=== PATIENT | female | born 1970 | race Caucasian/White ===

== ENCOUNTER 2023-08-20 13:39 | Outpatient (AMB) | payer MEDICAID, SELFPAY ==
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
[2023-08-20 13:46] VITALS: PULSE 61; O2SAT 95; BMI 27.2
== END 2023-08-20 14:47 | disposition home or self-care (01) ==
PROVIDERS: Visit Provider Nurse Practitioner Family
DX: R06.83 Snoring (principal); G47.19 Other hypersomnia; G47.9 Sleep disorder, unspecified; R47.1 Dysarthria and anarthria; G43.109 Migraine with aura, not intractable, without status migrainosus; R51.9 Headache, unspecified
CPT/HCPCS: 99204

== ENCOUNTER → 2023-08-20 13:39 | Outpatient (BNVA) | payer MEDICAID, SELFPAY | PROVIDERS: Visit Provider Nurse Practitioner Family | DX: G43.109 Migraine with aura, not intractable, without status migrainosus (principal); R47.1 Dysarthria and anarthria; R06.83 Snoring; G47.19 Other hypersomnia; G47.9 Sleep disorder, unspecified | CPT/HCPCS: 99212 ==

== ENCOUNTER 2023-12-10 14:34 | Outpatient (AMB) | payer MEDICAID, SELFPAY ==
--- NOTE | 2023-12-10 14:38 | MHC.OFFVIS ---
Intake Vital Signs 12/10/23 14:39 Height 4 ft 10 in Weight 132 lb BMI 27.6 BP 128/82 Blood Pressure Location Rt brachial Position Sitting Intake Visit Reasons: 3 mnts f/u appt for migraines-mail bx full Intake Note: Patient presents for 3 months follow up migraines. migraines are really bad Allergies clonazepam [From KLONOPIN] Allergy (Severe, Unverified 12/10/23 14:42) SWELLING shellfish derived [SHELLFISH DERIVED] Allergy (Severe, Unverified 12/10/23 14:42) SWELLING tramadol [TRAMADOL] Allergy (Intermediate, Unverified 12/10/23 14:42) SWELLING bee pollen [BEE STINGS] Allergy (Mild, Unverified 12/10/23 14:42) SWELLING IN THROAT honey Allergy (Unknown, Verified 12/10/23 14:42) Unknown Fish Flavor Allergy (Unknown, Uncoded 12/10/23 14:42) Unknown Medication List - Last Reconciled 12/10/23 by AIYANA Gonzalez acetaminophen 500 mg PO Q6H PRN atorvastatin 40 mg PO DAILY buspirone 10 mg PO BID cholecalciferol (vitamin D3) 50 mcg PO DAILY docusate sodium 100 mg PO DAILY duloxetine 60 mg PO DAILY gabapentin 800 mg PO BEDTIME galcanezumab-gnlm (Emgality Pen) 240 mg (2 mL) subcut ONCE 30 days magnesium oxide 400 mg PO BEDTIME 30 days meloxicam 15 mg PO DAILY naloxone 0.4 mg subcut Q2M PRN prazosin 2 mg PO BEDTIME riboflavin (vitamin B2) 400 mg PO DAILY 30 days rizatriptan 5 - 10 mg (0.5 - 1 x 10 mg) PO Q2H PRN 21 days trazodone 150 mg PO BEDTIME PRN umeclidinium-vilanterol 62.5-25 mcg/actuation (Anoro Ellipta) 1 inh inhalation DAILY HPI HPI Comments History of Present Illness Details 53-yr-old female presents for f/u visit. Pt reports she continues to have daily headaches and 3-4 more severe headache days per week. The top right frontal region is sore to the touch. Her baseline headache characteristics are: Location, quality, characteristics? 20/10 pain- frontal, bitemporal, throbbing and sharp pains a/w Blurry vision, seeing floaters during the headache, Photophobia, phonophobia, nausea, vomitting, dizziness, tiredness, brain fog, and right foot numbness/pins/needles sensation- after the headache She continues to have Fragmenetd sleep. Snoring, gasping. Excessive daytime sleepiness. Unfortunately she has not started any of the previous medications that were ordered, or the sleep study, or the brain MRI requested. Patient states she did not hear from anybody. She had moved shortly after her last visit here and possibly we did not have her correctable number either. [facility] Medical History (Updated 08/20/23 @ 18:15 by AIYANA Gonzalez) Anxiety and depression Chronic low back pain with right-sided sciatica Hx of diverticulitis of colon Osteoarthritis Moderate persistent asthma Renal mass Urinary retention QT prolongation PTSD (post-traumatic stress disorder) Polysubstance (excluding opioids) dependence HLD (hyperlipidemia) Hx of ischemic left MCA stroke Surgical History (Updated 08/20/23 @ 13:53 by ESTIVEN Fabian) H/O: hysterectomy H/O tubal ligation H/O knee surgery Social History Alcohol intake: current Patient Tobacco Use Status: Current everyday Tobacco user Review of Systems Const All systems reviewed & are unremarkable except as noted in HPI and below Physical Exam Vital Signs: Last Vital Signs BP 128/82 12/10/23 14:39 BMI result Body Mass Index 27.6 Const General: cooperative and no acute distress Orientation/consciousness: patient oriented x3 HEENT Head: Yes normocephalic Resp Effort & Inspection: normal respiratory effort and able to speak in complete sentences Neuro Other: Steady gait with walker Mild dysarthria, chronic General: patient oriented x3 Cognition (Neuro): normal cognition Motor exam (neuro): 5/5 motor strength present throughout Psych Mental Status: mental status grossly normal Affect: Labile affect present Attitude: cooperative Thought process: Normal thought process present Assessment & Plan Assessment & Plan (1) Migraine with aura: Code(s): G43.109 - Migraine with aura, not intractable, without status migrainosus (2) Headache: Code(s): R51.9 - Headache, unspecified (3) Dysarthria: Code(s): R47.1 - Dysarthria and anarthria (4) Sleep difficulties: Code(s): G47.9 - Sleep disorder, unspecified (5) Excessive daytime sleepiness: Code(s): G47.19 - Other hypersomnia (6) Snoring: Code(s): R06.83 - Snoring Plan Pt again advised to undergo brain MRI w/o - to obtain new baseline as pt has daily headcahe w/ headcahes c/w migraine w/ ? sensory aura of right foot paresthesias Pt again advised to undergo in-lab PSG, to assess for sleep apnea in pt w/ h/o Left MCA stroke, dysarthria, dysphagia. Will follow-up on these orders. No patient is scheduled for total hip replacement later this month. For overall headache management: Discussed importance of good self-care, including but not limited to maintaining a healthy diet, adequate fluid intake, adequate sleep, and engaging in regular physical activity. For headache triggers: Track headaches. For acute headache treatment: Discussed importance of taking acute medications at the first sign of headache, however stressed importance of avoiding acute medication overuse (especially with combined headache medications). Trial Rizatriptan 10mg tab, 1/2 - 1 tab (5-10mg) at onset of headache, may repeat in 2 hours. Max of 2 tabs (200mg) per 24 hours. May adjunct with OTC Tylenol 650mg q 4 hours, Ibuprofen (liquigel) 600mg q 6 hours, or Naproxen (liquigel) 440mg q 12 hrs prn. Previous acute migraine medication trials: Sumatriptan- ineffective Acute migraine medication contraindications: None at this time For headache prevention medication: Discussed that preventative medications should be taken routinely as prescribed for best effect, it may take several weeks for full effect to take effect. Start Riboflavin 400mg qam Start Magnesium 400mg qhs Start Emgality 240mg sc x's 1 then 120mg sc q month. Previous migraine prevention medication trials: Amitriptyline and Topiramate- ineffective. Migraine prevention medication contraindications: BBs d/t asthma dx. Future considerations- After PSG, reducing Trazodone as this may exacerbate headache. Pt to follow-up in 3 months or sooner prn. Medications: Changed From galcanezumab-gnlm (Emgality Pen) 120 mg subcut ONCE 30 days 1 mL 6RF To galcanezumab-gnlm (Emgality Pen) 240 mg (2 mL) subcut ONCE 30 days 2 mL 0RF Refilled magnesium oxide may hold for loose stools 400 mg PO BEDTIME 30 days 30 tabs 6RF rizatriptan max 2 tabs per day or 4 tabs per week 5 - 10 mg (0.5 - 1 x 10 mg) PO Q2H 21 days PRN 12 tabs 3RF migraine headache riboflavin (vitamin B2) 400 mg PO DAILY 30 days 30 tabs 6RF Coding Level of Care Code Est Pt Level 4 (94427) Diagnoses Migraine with aura G43.109 Headache R51.9 Dysarthria R47.1 Sleep difficulties G47.9 Excessive daytime sleepiness G47.19 Snoring R06.83
[2023-12-10 14:39] VITALS: BP 128/82; BMI 27.6
== END 2023-12-10 15:22 | disposition home or self-care (01) ==
PROVIDERS: PCP Physician Assistant; Visit Provider Nurse Practitioner Family
DX: G43.109 Migraine with aura, not intractable, without status migrainosus (principal); R51.9 Headache, unspecified; R47.1 Dysarthria and anarthria; G47.9 Sleep disorder, unspecified; G47.19 Other hypersomnia; R06.83 Snoring
CPT/HCPCS: 99214

== ENCOUNTER → 2023-12-10 14:34 | Outpatient (BNVA) | payer MEDICAID, SELFPAY | PROVIDERS: PCP Physician Assistant; Visit Provider Nurse Practitioner Family | DX: G43.109 Migraine with aura, not intractable, without status migrainosus (principal); G47.9 Sleep disorder, unspecified; G47.19 Other hypersomnia; R51.9 Headache, unspecified; R47.1 Dysarthria and anarthria; R06.83 Snoring | CPT/HCPCS: 99212 ==

== ENCOUNTER 2024-04-06 14:28 | Outpatient (AMB) | payer MEDICAID, SELFPAY ==
--- NOTE | 2024-04-06 14:39 | A.OFFVIS_ITS ---
Vital Signs 04/06/24 14:51 Height 4 ft 10 in Weight 128 lb 6 oz BMI 26.8 BP 122/70 Blood Pressure Location Lt brachial Position Sitting Pulse 82 Pulse Source Pulse Oximeter Pulse Oximetry (%) 97 Oxygen Delivery Method Room Air Intake Visit Reasons: 4 mo f/u/ LM w/Address Intake Note: Patient presents for 4 months f/u. Getting migraines 2-3 a week. Ears are very sensitive to touch and noise. Allergies shellfish derived [SHELLFISH DERIVED] Allergy (Severe, Verified 04/06/24 14:48) SWELLING bee pollen [BEE STINGS] Allergy (Mild, Verified 04/06/24 14:48) SWELLING IN THROAT Fish Flavor Allergy (Unknown, Uncoded 12/10/23 14:42) Unknown Medication List - Last Reconciled 04/06/24 by AIYANA Gonzalez acetaminophen 500 mg PO Q6H PRN atorvastatin 40 mg PO DAILY buspirone 10 mg PO BID cholecalciferol (vitamin D3) 50 mcg PO DAILY docusate sodium 100 mg PO DAILY duloxetine 60 mg PO DAILY gabapentin 800 mg PO BEDTIME galcanezumab-gnlm (Emgality Pen) 240 mg (2 mL) subcut ONCE 30 days magnesium oxide 400 mg PO BEDTIME 30 days meloxicam 15 mg PO DAILY naloxone 0.4 mg subcut Q2M PRN prazosin 2 mg PO BEDTIME riboflavin (vitamin B2) 400 mg PO DAILY 30 days rizatriptan 5 - 10 mg (0.5 - 1 x 10 mg) PO Q2H PRN 21 days trazodone 150 mg PO BEDTIME PRN umeclidinium-vilanterol 62.5-25 mcg/actuation (Anoro Ellipta) 1 inh inhalation DAILY HPI Comments Details: 53-yr-old female presents for f/u visit. Accompanied by her friend. Pt had an interval THR surgery. 02/01/24, Brain MRI w/o, No acute findings, Chronic left MCA infarct w/ hemosidirn staining and volume loss. Pt reports she is having 3 severe migraine days per week. She took Emgality 120mg sc x's 1, approx 3 months ago. Not sure if it helped. She forgot to reorder it. She endorses snoring, daytime sleepiness- dozes off when inactive and may be prone to spill a drink in her hands, sleep difficulties. She states her sleeping medicatiosn are not helping- states she is on Trazodone 300mg qhs and prazosin. She would like to stop Trazodone. She never did the sleep study. Baseline headache characteristics: Aura: Sees floaters during the headache Headache: Severe, Blurry vision, frontal, bitemporal, throbbing and sharp pains. A/w photophobia, phonophobia, nausea, vomiting, dizziness, tiredness, brain fog Focal weakness, Parethesias, Autonomic s/s? right foot numbness/pins/needles sensation- after the headache. Postdrome: Has a residual gross taste PFSH Medical History (Updated 04/06/24 @ 15:26 by AIYANA Gonzalez) Anxiety and depression Chronic low back pain with right-sided sciatica Hx of diverticulitis of colon Osteoarthritis Moderate persistent asthma Renal mass Urinary retention QT prolongation PTSD (post-traumatic stress disorder) Polysubstance (excluding opioids) dependence HLD (hyperlipidemia) Hx of ischemic left MCA stroke Surgical History History of hip replacement H/O: hysterectomy H/O tubal ligation H/O knee surgery Family History (Updated 04/06/24 @ 14:50 by Letty Romo CMA) Father Cancer Mother Heart failure Social History (Updated 04/06/24 @ 14:51 by Letty Romo CMA) Household Members: Spouse Housing: House Alcohol intake: current Patient Tobacco Use Status: Current everyday Tobacco user Physical Exam Vital Signs: Last Vital Signs Pulse 82 04/06/24 14:51 BP 122/70 04/06/24 14:51 Pulse Ox 97 04/06/24 14:51 Oxygen Delivery Method Room Air 04/06/24 14:51 BMI result Body Mass Index 26.8 Const General: cooperative and no acute distress Orientation/consciousness: patient oriented x3 Resp Effort & Inspection: normal respiratory effort and able to speak in complete sentences Neuro Other: A&O x's 3, w/ STM lapses. Dysarthria, some word finding difficulties. Antalgic gait. General: patient oriented x3 Psych Appearance: grossly normal Mental Status: mental status grossly normal Attitude: cooperative Assessment & Plan Assessment & Plan (1) Migraine with aura: Code(s): G43.109 - Migraine with aura, not intractable, without status migrainosus Category: Medical (2) Anxiety and depression: Code(s): F41.9 - Anxiety disorder, unspecified; F32.A - Depression, unspecified Category: Medical (3) Sleep difficulties: Code(s): G47.9 - Sleep disorder, unspecified Category: Medical (4) Excessive daytime sleepiness: Code(s): G47.19 - Other hypersomnia Category: Medical (5) Snoring: Code(s): R06.83 - Snoring Category: Medical (6) Insomnia: Code(s): G47.00 - Insomnia, unspecified Category: Medical Plan Reviewed brain MRI w/o- no acute findings. Chronic left MCA infarct. Pt again advised to undergo in-lab PSG, to assess for sleep apnea in pt w/ h/o Left MCA stroke, dysarthria, dysphagia. Trial Mirtazapine 7.5mg qhs for sleep. Will reach out to pt's pharmacy to confirm Trazodone dose- as pt asking for refill but to be weaned off Trazodone. Will refer pt to [facility] psychiatry, her methadone is already managed by [facility] addiction medicine clinic. For overall headache management: Discussed importance of good self-care, including but not limited to maintaining a healthy diet, adequate fluid intake, adequate sleep, and engaging in regular physical activity. Track headaches. For acute headache treatment: Rizatriptan 10mg tab, 1/2 - 1 tab (5-10mg) at onset of headache, may repeat in 2 hours. Max of 2 tabs (200mg) per 24 hours. May adjunct with OTC Tylenol 650mg q 4 hours, Ibuprofen (liquigel) 600mg q 6 hours, or Naproxen (liquigel) 440mg q 12 hrs prn. Previous acute migraine medication trials: Sumatriptan- ineffective Acute migraine medication contraindications: None at this time For headache prevention medication: Riboflavin 400mg qam Magnesium 400mg qhs Stop Emgality- as pt has been unable to manage the multiple steps involved in obtaining, stroing, and administering a monthly injectable tx. Thus, pt advsied to start Vyepti 100mg IV q 3 months- as pt has been able to consistently keep her clinic visit appointments. Previous migraine prevention medication trials: Amitriptyline and Topiramate- ineffective. Migraine prevention medication contraindications: BBs d/t asthma dx. Aimovig or Qulipta d/t constipation. Pt to follow-up in 3 months or sooner prn. Orders: Referrals Psychiatry Referral F19.20 - Other psychoactive substance dependence, uncomplicated, F32.A - Depression, unspecified, F41.9 - Anxiety disorder, unspecified, G47.00 - Insomnia, unspecified, Z86.73 - Personal history of transient ischemic attack (TIA), and cerebral infarction without residual deficits Medications: New mirtazapine 7.5 mg PO BEDTIME 30 tabs 3RF 30 days eptinezumab-jjmr (Vyepti) administer over 30 mins 100 mg IV [id number] 90 days G43.109 - Migraine with aura, not intractable, without status migrainosus methadone [facility] on [place], [place] 150 mg PO DAILY Discontinued galcanezumab-gnlm (Emgality Pen) Discontinued Reason: Doctor's Order 240 mg (2 mL) subcut ONCE 30 days 2 mL 0RF Coding Level of Care Code Est Pt Level 4 (52638) Diagnoses Migraine with aura G43.109 Anxiety and depression F41.9; F32.A Sleep difficulties G47.9 Excessive daytime sleepiness G47.19 Snoring R06.83 Insomnia G47.00
[2024-04-06 14:51] VITALS: BP 122/70; PULSE 82; O2SAT 97; BMI 26.8
== END 2024-04-06 15:40 | disposition home or self-care (01) ==
PROVIDERS: PCP Physician Assistant; Visit Provider Nurse Practitioner Family
DX: G43.109 Migraine with aura, not intractable, without status migrainosus (principal); F41.9 Anxiety disorder, unspecified; F32.A Depression, unspecified; G47.9 Sleep disorder, unspecified; G47.19 Other hypersomnia; R06.83 Snoring; G47.00 Insomnia, unspecified
CPT/HCPCS: 99214

== ENCOUNTER → 2024-04-06 14:28 | Outpatient (BNVA) | payer MEDICAID, SELFPAY | PROVIDERS: PCP Physician Assistant; Visit Provider Nurse Practitioner Family | DX: G43.109 Migraine with aura, not intractable, without status migrainosus (principal); G47.19 Other hypersomnia; R06.83 Snoring; G47.00 Insomnia, unspecified; F41.9 Anxiety disorder, unspecified; F32.A Depression, unspecified | CPT/HCPCS: 99212 ==

== ENCOUNTER 2024-10-21 14:17 | Outpatient (AMB) | payer MEDICAID, SELFPAY ==
[2024-10-21 14:21] VITALS: BP 110/70; PULSE 84; O2SAT 92; BMI 29.7
--- NOTE | 2024-10-21 14:21 | A.OFFVIS_ITS ---
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 Required: No Accompanied by: Spouse Allergies shellfish derived [SHELLFISH DERIVED] Allergy (Severe, Verified 10/21/24 14:23) SWELLING bee pollen [BEE STINGS] Allergy (Mild, Verified 10/21/24 14:23) SWELLING IN THROAT Fish Flavor Allergy (Unknown, Uncoded 12/10/23 14:42) Unknown Medication List - Last Reconciled 10/21/24 by AIYANA Gonzalez acetaminophen 500 mg PO Q6H PRN atorvastatin 40 mg PO DAILY buspirone 10 mg PO BID cholecalciferol (vitamin D3) 50 mcg PO DAILY docusate sodium 100 mg PO DAILY duloxetine 60 mg PO DAILY eptinezumab-jjmr (Vyepti) 100 mg IV [id number] 90 days gabapentin 800 mg PO BEDTIME magnesium oxide 400 mg PO BEDTIME 30 days meloxicam 15 mg PO DAILY methadone 150 mg PO DAILY mirtazapine 7.5 mg PO BEDTIME 30 days naloxone 0.4 mg subcut Q2M PRN prazosin 2 mg PO BEDTIME riboflavin (vitamin B2) 400 mg PO DAILY 30 days rizatriptan 5 - 10 mg (0.5 - 1 x 10 mg) PO Q2H PRN 21 days trazodone 150 mg PO BEDTIME PRN trazodone 200 mg PO BEDTIME PRN umeclidinium-vilanterol 62.5-25 mcg/actuation (Anoro Ellipta) 1 inh inhalation DAILY HPI Comments Details: 54-yr-old female presents for f/u visit. Accompanied by her friend. Pt denies any significant interval medical history chnages. Pt reports she is having 3 severe migraine days per week, and a daily more moderate headache. She is having frequent holocranial allodynia- it hurts to touch her whole head, cannot brush her hair. She states her triptan helps, but she has a lot of migraine attacks. She has not started Vtepti yet. She endorses snoring, daytime sleepiness- dozes off when inactive and may be prone to spill a drink in her hands, sleep difficulties. She states she did not stop her trazodone- now states she cannot sleep without it. She started Mirtazapine, but sttaes it sucks . She continues to take Trazodone 300mg qhs and prazosin. She never had the sleep study. Baseline headache characteristics: Aura: Sees floaters during the headache Headache: Severe, Blurry vision, frontal, bitemporal, throbbing and sharp pains. A/w photophobia, phonophobia, nausea, vomiting, dizziness, tiredness, brain fog Focal weakness, Parethesias, Autonomic s/s? right foot numbness/pins/needles sensation- after the headache. Postdrome: Has a residual gross taste [facility] Medical History (Updated 04/06/24 @ 15:26 by AIYANA Gonzalez) Anxiety and depression Chronic low back pain with right-sided sciatica Hx of diverticulitis of colon Osteoarthritis Moderate persistent asthma Renal mass Urinary retention QT prolongation PTSD (post-traumatic stress disorder) Polysubstance (excluding opioids) dependence HLD (hyperlipidemia) Hx of ischemic left MCA stroke Surgical History History of hip replacement H/O: hysterectomy H/O tubal ligation H/O knee surgery Family History Father Cancer Mother Heart failure Social History Household Members: Spouse Housing: House Alcohol intake: current Patient Tobacco Use Status: Current everyday Tobacco user Physical Exam Vital Signs: Last Vital Signs Pulse 84 10/21/24 14:21 BP 110/70 10/21/24 14:21 Pulse Ox 92 10/21/24 14:21 Oxygen Delivery Method Room Air 10/21/24 14:21 BMI result Body Mass Index 29.7 Const General: cooperative and no acute distress Resp Effort & Inspection: normal respiratory effort and able to speak in complete sentences Neuro Other: A&O x's 3, w/ STM lapses. Diffuse scalp tenderness w/ lesions, erythema, warmth. Dysarthria, some word finding difficulties. Antalgic gait. Psych Appearance: grossly normal Mental Status: mental status grossly normal Attitude: cooperative Assessment & Plan Assessment & Plan (1) Migraine with aura: Code(s): G43.109 - Migraine with aura, not intractable, without status migrainosus Category: Medical (2) Anxiety and depression: Code(s): F41.9 - Anxiety disorder, unspecified; F32.A - Depression, unspecified Category: Medical (3) Sleep difficulties: Code(s): G47.9 - Sleep disorder, unspecified Category: Medical (4) Excessive daytime sleepiness: Code(s): G47.19 - Other hypersomnia Category: Medical (5) Snoring: Code(s): R06.83 - Snoring Category: Medical (6) Insomnia: Code(s): G47.00 - Insomnia, unspecified Category: Medical Plan For h/o chronic left MCA infarct: Contyinue to optimize CV risk factors. BP normotensive. ASA 81mg qhs. Continue statin. Pt again advised to undergo in-lab PSG, to assess for sleep apnea in pt w/ h/o Left MCA stroke, dysarthria, dysphagia. Continue Mirtazapine 7.5mg qhs for sleep. For overall headache management: Discussed importance of good self-care, including but not limited to maintaining a healthy diet, adequate fluid intake, adequate sleep, and engaging in regular physical activity. Track headaches. For acute headache treatment: Rizatriptan 10mg tab, 1/2 - 1 tab (5-10mg) at onset of headache, may repeat in 2 hours. Max of 2 tabs (200mg) per 24 hours. May adjunct with OTC Tylenol 650mg q 4 hours, Ibuprofen (liquigel) 600mg q 6 hours, or Naproxen (liquigel) 440mg q 12 hrs prn. Previous acute migraine medication trials: Sumatriptan- ineffective Acute migraine medication contraindications: None at this time For headache prevention medication: Riboflavin 400mg qam Magnesium 400mg qhs Stopped Emgality- as pt has been unable to manage the multiple steps involved in obtaining, storing, and administering a monthly injectable tx. Thus, pt advised is again advised to start Vyepti 100mg IV q 3 months- as pt has been able to consistently keep her clinic visit appointments. Previous migraine prevention medication trials: Amitriptyline and Topiramate- ineffective. Migraine prevention medication contraindications: BBs d/t asthma dx. Aimovig or Qulipta d/t constipation. Pt to follow-up in 3 months or sooner prn. Medications: New aspirin at bedtime 81 mg PO DAILY 30 days 30 tabs 6RF for secondary stroke prevention Refilled eptinezumab-jjmr (Vyepti) administer over 30 mins 100 mg IV [id number] 90 days 0RF G43.109 - Migraine with aura, not intractable, without status migrainosus Coding Level of Care Code Est Pt Level 4 (02830) Diagnoses Migraine with aura G43.109 Anxiety and depression F41.9; F32.A Sleep difficulties G47.9 Excessive daytime sleepiness G47.19 Snoring R06.83 Insomnia G47.00
== END 2024-10-21 15:20 | disposition home or self-care (01) ==
PROVIDERS: PCP Physician Assistant; Visit Provider Nurse Practitioner Family
DX: G43.109 Migraine with aura, not intractable, without status migrainosus (principal); F41.9 Anxiety disorder, unspecified; F32.A Depression, unspecified; G47.9 Sleep disorder, unspecified; G47.19 Other hypersomnia; R06.83 Snoring; G47.00 Insomnia, unspecified
CPT/HCPCS: 99214

== ENCOUNTER → 2024-10-21 14:17 | Outpatient (BNVA) | payer MEDICAID, SELFPAY | PROVIDERS: PCP Physician Assistant; Visit Provider Nurse Practitioner Family | DX: G43.109 Migraine with aura, not intractable, without status migrainosus (principal); G47.9 Sleep disorder, unspecified; G47.19 Other hypersomnia; G47.00 Insomnia, unspecified; R06.83 Snoring; F41.9 Anxiety disorder, unspecified; F32.A Depression, unspecified | CPT/HCPCS: 99212 ==

== ENCOUNTER 2025-04-27 13:57 | Outpatient (AMB) | payer MEDICAID, SELFPAY ==
--- NOTE | 2025-04-27 14:03 | MHC.OFFVIS ---
Vital Signs 04/27/25 14:04 Height 4 ft 10 in Weight 133 lb BMI 27.8 Intake Visit Reasons: Follow Up 6mo Intake Note: Patient presents 6 month follow up for migraines. Allergies shellfish derived [SHELLFISH DERIVED] Allergy (Severe, Verified 04/27/25 14:05) SWELLING bee pollen [BEE STINGS] Allergy (Mild, Verified 04/27/25 14:05) SWELLING IN THROAT Fish Flavor Allergy (Unknown, Uncoded 04/27/25 14:05) Unknown Medication List - Last Reconciled 04/27/25 by AIYANA Gonzalez acetaminophen 500 mg PO Q6H PRN aspirin 81 mg PO DAILY 30 days atorvastatin 40 mg PO DAILY buspirone 10 mg PO BID cholecalciferol (vitamin D3) 50 mcg PO DAILY docusate sodium 100 mg PO DAILY duloxetine 60 mg PO DAILY eptinezumab-jjmr (Vyepti) 100 mg IV [id number] 90 days gabapentin 800 mg PO BEDTIME magnesium oxide 400 mg PO BEDTIME 30 days meloxicam 15 mg PO DAILY methadone 150 mg PO DAILY mirtazapine 7.5 mg PO BEDTIME 30 days naloxone 0.4 mg subcut Q2M PRN prazosin 2 mg PO BEDTIME riboflavin (vitamin B2) 400 mg PO DAILY 30 days rizatriptan 5 - 10 mg (0.5 - 1 x 10 mg) PO Q2H PRN 21 days trazodone 150 mg PO BEDTIME PRN trazodone 200 mg PO BEDTIME PRN umeclidinium-vilanterol 62.5-25 mcg/actuation (Anoro Ellipta) 1 inh inhalation DAILY HPI Comments Details: 54-yr-old female presents for f/u visit of migraine. Accompanied by her friend. Pt denies any significant interval medical history changes. Since last visit, patient started Vyepti 100 mg infusion. So far, she has had 1 infusion, which he feels has been overall helpful. Pt reports she is having less headaches and migraine days, now 3 headache/migraine days per week. However, she does continue to have bothersome phonophobia. She states her triptan is effective. Note, on review of patient's chart, it does look like she recently saw [facility] on 03/16/2025 and underwent a right-sided occipital nerve block. She endorses sleep difficulties, snoring, daytime sleepiness- dozes off when inactive and may be prone to spill a drink in her hands. She continues to use Trazodone 300mg qhs and prazosin for sleep. She thought she had had the in-lab sleep study, however I do not see any evidence that she has had the previously ordered in-lab sleep study, though possibly was referred for a sleep study through [facility] neurology. Baseline headache characteristics: Aura: Sees floaters during the headache Headache: Severe, Blurry vision, frontal, bitemporal, throbbing and sharp pains. A/w photophobia, phonophobia, nausea, vomiting, dizziness, tiredness, brain fog Focal weakness, Parethesias, Autonomic s/s? right foot numbness/pins/needles sensation- after the headache. Postdrome: Has a residual gross taste PFSH Medical History Anxiety and depression Chronic low back pain with right-sided sciatica Hx of diverticulitis of colon Osteoarthritis Moderate persistent asthma Renal mass Urinary retention QT prolongation PTSD (post-traumatic stress disorder) Polysubstance (excluding opioids) dependence HLD (hyperlipidemia) Hx of ischemic left MCA stroke Surgical History History of hip replacement H/O: hysterectomy H/O tubal ligation H/O knee surgery Family History Father Cancer Mother Heart failure Social History Household Members: Spouse Housing: House Alcohol intake: current Patient Tobacco Use Status: Current everyday Tobacco user Physical Exam Vital Signs: BMI result Body Mass Index 27.8 Const General: cooperative and no acute distress Resp Effort & Inspection: normal respiratory effort and able to speak in complete sentences Neuro Other: A&O x's 3, w/ STM lapses, though overall clearer today. Dysarthria, some word finding difficulties. Antalgic gait. Psych Appearance: grossly normal Mental Status: mental status grossly normal Attitude: cooperative Assessment & Plan Assessment & Plan (1) Methadone maintenance therapy patient: Code(s): F11.20 - Opioid dependence, uncomplicated Category: Medical (2) Migraine with aura: Code(s): G43.109 - Migraine with aura, not intractable, without status migrainosus Category: Medical Qualifiers: Status migrainosus presence: without status migrainosus Intractability: not intractable Qualified Code(s): G43.109 - Migraine with aura, not intractable, without status migrainosus (3) Anxiety and depression: Code(s): F41.9 - Anxiety disorder, unspecified; F32.A - Depression, unspecified Category: Medical (4) Sleep difficulties: Code(s): G47.9 - Sleep disorder, unspecified Category: Medical (5) Excessive daytime sleepiness: Code(s): G47.19 - Other hypersomnia Category: Medical (6) Snoring: Code(s): R06.83 - Snoring Category: Medical (7) Insomnia: Code(s): G47.00 - Insomnia, unspecified Category: Medical Plan For h/o chronic left MCA infarct: Continue to optimize CV risk factors. BP has been running normotensive. Continue ASA 81mg qhs. Continue statin. For sleep difficulties: If not yet completed, patient is again advised to undergo in-lab PSG, to assess for sleep apnea in pt w/ h/o Left MCA stroke, dysarthria, dysphagia. For overall headache management: Discussed importance of good self-care, including but not limited to maintaining a healthy diet, adequate fluid intake, adequate sleep, and engaging in regular physical activity. Track headaches. For acute headache treatment: Rizatriptan 10mg tab, 1/2 - 1 tab (5-10mg) at onset of headache, may repeat in 2 hours. Max of 2 tabs (200mg) per 24 hours. May take with OTC Tylenol 650mg every 4 hours, Ibuprofen (liquigel) 600mg every 6 hours, or Naproxen (liquigel) 440mg every 12 hours as needed. Previous acute migraine medication trials: Sumatriptan- ineffective Acute migraine medication contraindications: None at this time For headache prevention medication: Riboflavin 400mg daily in the morning Magnesium 400mg daily at bedtime Increase Vyepti from 100mg IV q 3 months to 300 mg IV Q 3 months- as patient has had good reduction in monthly migraine days of greater than 50% reduction, however does continue to have 3 migraine days per week and significant phonophobia. Patient has demonstrated ability to be compliant with Vyepti therapy, where as she was unable to manage home Emgality therapy. Previous migraine prevention medication trials: Amitriptyline and Topiramate- ineffective. Emgality-pt was unable to manage the multiple steps involved in obtaining, storing, and administering a monthly injectable tx. Migraine prevention medication contraindications: BBs d/t asthma dx. Aimovig or Qulipta d/t constipation. Will follow-up upon review of above and patient to follow-up in clinic in 3-4 months or sooner prn. Orders: Orders RT PSG in-lab sleep study Today F11.20 - Opioid dependence, uncomplicated, G47.19 - Other hypersomnia, G47.9 - Sleep disorder, unspecified, R06.83 - Snoring, R47.1 - Dysarthria and anarthria Medications: Changed From riboflavin (vitamin B2) 400 mg PO DAILY 30 days 30 tabs 6RF To riboflavin (vitamin B2) 400 mg PO DAILY 90 days 90 tabs 3RF From magnesium oxide may hold for loose stools 400 mg PO BEDTIME 30 days 30 tabs 6RF To magnesium oxide may hold for loose stools 400 mg PO BEDTIME 90 days 90 tabs 3RF From eptinezumab-jjmr (Vyepti) administer over 30 mins 100 mg IV [id number] 90 days 0RF G43.109 - Migraine with aura, not intractable, without status migrainosus To eptinezumab-jjmr (Vyepti) administer over 30 mins 300 mg (3 mL) IV [id number] 90 days 0RF G43.109 - Migraine with aura, not intractable, without status migrainosus Refilled rizatriptan max 2 tabs per day or 4 tabs per week 5 - 10 mg (0.5 - 1 x 10 mg) PO Q2H 21 days PRN 12 tabs 6RF migraine headache Discontinued mirtazapine Discontinued Reason: Patient no longer taking 7.5 mg PO BEDTIME 30 days 30 tabs 3RF Coding Level of Care Code Est Pt Level 4 (94042) Diagnoses Methadone maintenance therapy patient F11.20 Migraine with aura and without status migrainosus, not intractable G43.109 Status migrainosus presence: without status migrainosus Intractability: not intractable Anxiety and depression F41.9; F32.A Sleep difficulties G47.9 Excessive daytime sleepiness G47.19 Snoring R06.83 Insomnia G47.00 [place] Sleepiness Scale Questions Sitting and reading: high chance of dozing Watching TV: high chance of dozing Sitting inactive in a theater, movie etc.: high chance of dozing As a passenger in a car for an hour without break: would never doze Lying down in the afternoon when circumstances permit: high chance of dozing Sitting and talking to someone: would never doze Sitting quietly after lunch without alcohol: high chance of dozing In a car, while stopped for a few minutes in the traffic: would never doze ESS < 10: normal, ESS > 12: pathologic: 15
[2025-04-27 14:04] VITALS: BMI 27.8
== END 2025-04-27 14:37 | disposition home or self-care (01) ==
LOC: HO.HSMS 13:58
PROVIDERS: PCP Physician Assistant; Visit Provider Nurse Practitioner Family
DX: F11.20 Opioid dependence, uncomplicated (principal); G43.109 Migraine with aura, not intractable, without status migrainosus; F41.9 Anxiety disorder, unspecified; F32.A Depression, unspecified; G47.9 Sleep disorder, unspecified; G47.19 Other hypersomnia; R06.83 Snoring; G47.00 Insomnia, unspecified
CPT/HCPCS: 99214

== ENCOUNTER → 2025-04-27 13:57 | Outpatient (BNVA) | payer MEDICAID, SELFPAY | PROVIDERS: PCP Physician Assistant; Visit Provider Nurse Practitioner Family | DX: G43.109 Migraine with aura, not intractable, without status migrainosus (principal); G47.9 Sleep disorder, unspecified; G47.19 Other hypersomnia; G47.00 Insomnia, unspecified; R06.83 Snoring; F41.9 Anxiety disorder, unspecified; F32.A Depression, unspecified; F11.20 Opioid dependence, uncomplicated | CPT/HCPCS: 99212 ==

== ENCOUNTER → 2025-06-12 19:30 | Outpatient (REF) | payer MEDICAID, SELFPAY | LOC: HO.SL 19:30 | PROVIDERS: PCP Physician Assistant; Visit Provider Nurse Practitioner Family | DX: G47.9 Sleep disorder, unspecified (principal); R47.1 Dysarthria and anarthria; G47.19 Other hypersomnia; R06.83 Snoring; F11.20 Opioid dependence, uncomplicated | CPT/HCPCS: 95810 ==

== ENCOUNTER → 2025-06-12 21:56 | Outpatient (BNV) | payer MEDICAID, SELFPAY | PROVIDERS: PCP Physician Assistant; Visit Provider Psychiatry & Neurology Neurology | DX: G47.00 Insomnia, unspecified (principal) | CPT/HCPCS: 95810 ==

== ENCOUNTER 2025-10-10 11:21 | Outpatient (REF) | payer MEDICAID, SELFPAY ==
--- NOTE | ~2025-10-10 | XR_ITS ---
EXAMINATION: XR CHEST CLINICAL INFORMATION: R05.9 - Cough, unspecified COMPARISON: None available. TECHNIQUE: 2 views of the chest were obtained. FINDINGS: Heart and mediastinal contours are within normal limits. There are mildly coarse lung markings. 5 mm nodular density right mid third lung zone probably represents calcified granuloma. There is no pleural effusion. XR/XR chest 2V IMPRESSION: No acute disease Electronically signed by: Julio Pierce MD 10/10/2025 12:39 PM ILIANA
--- OUTSIDE RECORDS SUMMARY | 2025-10-10 14:28 | XMS_ITS | Encounter Summary ---
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 Facing Cutting Machine Operator Name Role Phone Lokesh Dahl MD Primary Care Provider + [phone] Encounter Details Date Type Department Care Team (Late st Contact Info) Description 11/04/2017 Interim Notes [facility] [address] [place] [phone] Jose Overton [phone] [place] [id number] Social History Tobacco Use Types Packs/Day Years Used Date Smoking Tobacco: Every Day Alcohol Use Standard Drinks/Week Comments No 0 (1 standard drink = 0.6 oz pur e alcohol) Comments No Sex and Gender Information Value Date Recorded Sex Assigned at Female 09/12/2017 10:53 AM PDT Legal Sex Female 8:52 AM PST Gender Identity Female 09/12/2017 10:53 AM PDT Sexual Orientation Straight 09/12/2017 10 :53 AM PDT documented as of this encounter Plan of Treatment Not on file documented as of this encounter Visit Diagnoses Not on filedocumented in this encounter Additional Health Concerns Assessment Noted Time PHQ-2 Depression Total Score: 6 06/05/20 16 2:00 PM PDT documented as of this encounter Care Teams Facing Cutting Machine Operator Relationship Specialty Start Date End Date Lokesh Dahl MD [address] [place] [id number] PCP - General Internal Medicine 09/10/24 documented as of this encounter
--- OUTSIDE RECORDS SUMMARY | 2025-10-10 14:28 | XMS_ITS | Clinical Summary ---
Author Organization [facility] Address [address] [place] [address] Care Team Providers Care Security Engineer Name Role Phone Lokesh Dahl MD Primary Care Provider + [phone] Source Comments PLEASE NOTE, if this patient is a minor, it may be UNLAWFUL to discuss sensitive information that is contained in these records (such as FAMILY PLANNING, MENTAL HEALTH or SUBSTANCE ABUSE) with the minor patient's parent or other person without the patient's specific authorization.[facility] Allergies Active Allergy Reactions Criticality Noted Date Comments Bee Pollen 07/26/2019 Bee Sting SOB,Swelling 06/05/2016 Fish Derived 07/26/2019 Shellfish Containing Products SOB,Swelling 06/05/2016 Other Reaction(s): rash, swelling Shrimp SOB,Swelling 06/05/2016 Allergic to shellfish Tramadol Hcl 10/07/2012 Other Reaction(s): Not available Medications busPIRone (BUSPAR) 10 mg tablet MÓNICA DOMINIQUE 020 Active DULoxetine (CYMBALTA) [address] capsuleIndication s:Primary osteoarthritis of right hip MÓNICA DOMINIQUE- PYSCH 020 Active docusate sodium (COLACE) 100 mg capsuleIndication s:Slow transit constipation TAKE 1 CAPSULE BY MOUTH 2 (TWO) TIMES DAILY 90 Capsule 023 Active MISCELLANEOUS MEDICAL SUPPLY MISCIndications:P rimary osteoarthritis of right knee,Primary osteoarthritis of right hip,Chronic midline low back pain with right-sided sciatica,Hx of ischemic left MCA stroke,DDD (degenerative disc disease), lumbosacral by miscellaneous route once daily by miscellaneous route once daily. Dispense 1 Rolator walker w/ wheels, brake, and bench. Lifetime use . DDD (degenerative disc disease), lumbosacral [M51.37], Hx of ischemic left MCA stroke [Z86.73] 1 Each 023 Active methadone HCl (METHADONE ORAL) Take 115 mg by mouth 022 Active meloxicam (MOBIC) 15 mg tabletIndications :Primary osteoarthritis of right hip,DDD (degenerative disc disease), lumbosacral Take 1 Tablet by mouth once daily 90 Tablet 1 024 Active prazosin (MINIPRESS) 2 mg capsule TAKE 1 CAPSULE BY MOUTH TWICE A DAY HOLD FOR DIZZINESS OR SEDATION 024 Active aspirin [address] 81 mg into mouth, chew and swallow once daily Active traZODone (DESYREL) 150 mg tablet Take 150 mg by mouth nightly at bedtime 025 Active hydrOXYzine pamoate (VISTARIL) 25 mg capsule Take 25 mg by mouth 2 (two) times daily as needed 025 Active VENTOLIN HFA 90 mcg/actuation inhalerIndication s:Chronic obstructive pulmonary disease, unspecified COPD type INHALE 2 PUFFS INTO THE LUNGS EVERY 4 (FOUR) HOURS NEEDED FOR SHORTNESS OF BREATH OR WHEEZING 18 Each 5 025 Active lactulose (CHRONULAC) 10 gram/15 mL solutionIndicatio ns:Drug-induced constipation TAKE 15 ML BY MOUTH ONCE DAILY 237 mL 1 025 Active nicotine (NICODERM, STEP 1) 21 mg/[address] 1 Patch onto the skin once daily (every 24 hours). 60 Patch 1 025 Active nicotine, polacrilex, (NICORETTE) 4 mg gum Take 1 Each by mouth as needed for smoking cessation Pt requests cinnamon flavor. 110 Each 2 025 Active fluticasone-umecl idinum-vilanterol (TRELEGY ELLIPTA) 100-62.5-25 mcg inhaler Inhale 1 Puff into the lungs once daily. 60 Each 2 025 Active fluticasone furoate 100 mcg/actuation dsdv Inhale 1 Puff into the lungs once daily. 90 Each 025 Active umeclidinium-maikel nteroL (ANORO ELLIPTA) 62.5-25 mcg/actuation dsdv inhalation powder INHALE 1 PUFF BY MOUTH EVERY MORNING 60 Each 1 025 Active atorvastatin (LIPITOR) 40 mg tabletIndications :Hx of ischemic left MCA stroke TAKE 1 TABLET BY MOUTH NIGHTLY AT BEDTIME FOR HIGH CHOLESTEROL 90 Tablet 025 Active gabapentin (NEURONTIN) 800 mg tabletIndications :Chronic pain of multiple joints TAKE 1 TABLET BY MOUTH THREE TIMES A DAY 90 Tablet 3 025 Active oxyBUTYnin (DITROPAN) 5 mg tabletIndications :Overactive bladder TAKE 1/2 TABLET BY MOUTH TWICE A DAY NEEDED FOR INCONTINENCE 30 Tablet 025 Active gabapentin (NEURONTIN) 800 mg tabletIndications :Chronic pain of multiple joints TAKE 1 TABLET BY MOUTH THREE TIMES A DAY 90 Tablet 025 2024 Discontinued oxybutynin (DITROPAN) 5 mg tabletIndications :Overactive bladder TAKE 1/2 TABLET BY MOUTH 2 (TWO) TIMES DAILY NEEDED FOR INCONTINENCE. 30 Tablet 025 2024 Discontinued Active Problems Patient Care Coordination No te Formatting of this note migh t be different from the original. Community Partner- [facility] Behavioral Health Community Partner Staff Editor Misti Li [phone] front end specialist Lita Black [phone] Problem Noted Date Diagnosed Date Tobacco abuse 11/05/2024 Generalized anxiety disorder 11/05/2024 Hypercholesterolemia 11/05/2024 Primary osteoarthritis of right knee 05/12/2022 Patient on methadone maintenance therapy 021 Primary insomnia 03/16/2021 Chronic migraine without aur a without status migrainosus, not intractable 09/14/2020 Overview (09/14/2020): [facility] 09/04/2020 NEUROLOGY NOTES Migraines without aura, possible vestibular migraines given dizziness, tension type headaches. Memory complaint - Recommend multi factorial approach for headaches management, small frequent meals, adequate hydration, adequate sleep, stress management, regular exercise as tolerated. -Continue limiting caffeine products to no more than 2 cups/day. -Recommend continue limiting OTC analgesic to no more than 3 doses per week to avoid rebound headaches -Recommend trial of topiramate Recommend trial of Topamax preventatively for headaches. Start at 25 mg daily x 1 week, then 25 twice daily x1 week, then 25/50mg x 1 week , then 50 mg twice daily. Discussed this medication may take 4 to 6 weeks to fully kick in. Side effects discussed, possible tingling sensation on fingertips, around the mouth and or on feet . Appetite suppression, weight loss, hair loss, possible cognitive changes, typically this medication does not cause drowsiness. d Discussed side effects are transient and would improve with stopping this medication. -She is on several medication that can help with headaches, trazodone, naproxen, Excedrin, gabapentin, duloxetine, would be cautious about adding medications -Complaints of dizziness and memory change check MRI brain without contrast --Memory changes likely multifactorial , possible sleep disorder, history of left MCA stroke, history of substance abuse, anxiety depression likely multifactorial but with checking an MRI brain and will refer to sleep medicine clinic -Keep headache diary, patient given a printout -May use Zofran 4 mg, 1 tab every 8 hours as needed for nausea related to migraine headache over the results of a migraine. -Given history of stroke, would avoid triptans. -Ophthalmology exam, consult placed -The patient will follow-up in our clinic in 3-4 months . The patient knows to call us sooner if there are any problems. Slurring of speech 09/27/2019 Primary osteoarthritis of right hip 09/20/2019 Overview (09/20/2019): [facility] 09/08/19 Xray Hip FINDINGS: No acute osseous abnormality. The hip joint is anatomically aligned. Moderate to severe osteoarthrosis of the right hip with joint space narrowing, osteophytosis and near povn-ad-ywfo articulation. Cam type ALISSON deformity of the right femoral head. Calcified phleboliths within the pelvis There is no aggressive bone destruction. The soft tissues are unremarkable. History of stroke with residual deficit 06/06/20 16 Overview (11/05/2024): 2019. Subsequent right side weakness, slurred speech, word finding difficulty Chronic midline low back pain with right-sided s ciatica 06/06/2016 Simple chronic bronchitis PTSD (post-traumatic stress disorder)- followed by [facility] Encounters Date Type Department Care Team Description 08/05/2025 Interim Notes [address] [phone] Latrice Live RN 08/05/2025 Interim Notes [address] [phone] Marcelle Candelario from Last 3 Months Immunizations Immunization Administration Dates Next Due Flu, Cell Culture based, Pre servative Free, 6m+, Flucelvax 02/22/2023 Flu, Preservative Free 02/05/2024,2021,09/03/2019,09/19 Hep B, Adult/Adol (KETMCHN-V-IRMHE/RECOMBIVAX-ADULT) 02/02/2020,09/20/2019 INFLUENZA, SEASONAL, INJECTABLE 09/30/20 24,12/12/2019,11/07/2017,01/14,11/25/2014,10/08/2010 NAYLA COVID-19 VACCINE 05/01/2021 PFIZER COVID VACCINE, MAROON CAP, 6M-4Y 09/30/2024 PNEUMOCOCCAL POLYSACCHARIDE PPV23 (Pneumovax 23) 11/21/2017,09/19/2015,08/26/2011,10/08 TDAP 04/19/2019,05/21/2015 Td (adult) unspecified 09/14/2008 ZOSTER VACCINE, RECOMBINANT (SHINGRIX) Family History Medical History Relation Name Comments Alcohol/Drug Abuse Father Cancer Father Alcohol/Drug Abuse Mother Relation Name Status Comments Father Mother Sister Alive Social History Tobacco Use Types Packs/Day Years Used Date Smoking Tobacco: Every Day Cigarettes 1 42.9 Started: 1982 Smokeless Tobacco: Never Tobacco Cessation:Ready to Q uit: Not Asked; Counseling Given: Not Answered Comments:about 5 a day Alcohol Use Standard Drinks/Week Comments No 0 (1 standard drink = 0.6 oz pur e alcohol) Social Connections Answer Date Recorded How often do you feel lonely or isolated from th ose around you? 1 01/07/2025 Financial Resource Strain Answer Date R ecorded Hard to pay for: Food 1 01/07/2025 Stress Answer Date Recorded Do you feel these kinds of stress these days? 1 01/07/2025 Physical Activity Answer Date Recorded Physical Activity 0 07/19/2019 Food Insecurity Answer Date Recorded Hard to pay for: Food 1 01/07/2025 Transportation Needs Answer Date Record ed Hard to pay for: Transportation 1 01/07/2025 Housing Stability Answer Date Recorded Hard to pay for: Rent/Mortgage payment 1 01/07/2025 Safety and Environment Answer Date Jose rded Safety 1 12/31/2023 Utilities Answer Date Recorded Hard to pay for: Utilities 1 01/07 Employment Answer Date Recorded Stress 0 12/31/2023 Comments No Sex and Gender Information Value Date Recorded Sex Assigned at Female 09/12/2017 10:53 AM PDT Legal Sex Female 8:52 AM PST Gender Identity Female 09/12/2017 10:53 AM PDT Sexual Orientation Straight 09/12/2017 10 :53 AM PDT Last Filed Vital Signs Vital Sign Reading Time Taken Comments Blood Pressure 124/85 06/09/2025 11:02 AM EDT Pulse 84 06/09/2025 11:02 AM EDT Temperature 37.2 C (98.9 F) 06/09/2025 11:02 AM EDT Respiratory Rate 18 01/07/2025 2:18 PM EST Oxygen Saturation 88% 06/09/2025 11:02 AM EDT Inhaled Oxygen Concentration - - Weight 55.8 kg (123 lb) 06/09/2025 11:02 AM EDT Height 147.3 cm (4' 10 ) 01/07/2025 2:18 PM EST Body Mass Index 25.71 01/07/2025 2:18 PM EST Plan of Treatment Health Maintenance Due Date Last Done Comments HPV Screening (self-collect) 1969 HPV Screening 1969 Pap + HPV 1969 CT Colonography 2014 Colonoscopy 2014 Colorectal Cancer Screening 2014 FIT/gFOBT 2014 Fecal DNA 2014 Flexible Sigmoidoscopy 2014 Imm-Pneumococcal 50+ (2 of 2 - PCV) 11/21/2018 11/21/2017, 09/19/2015, 08/26/2011, Additional history exists Imm-RSV (adult) (1 - Risk 50 -74 years 1-dose series) 2019 Lung Cancer Screening 2019 Imm-Hepatitis B (3 of 3 - 19 + 3-dose series) 03/29/2020 02/02/2020, 09/20/2019 Breast Cancer Screening (Mammogram) 01/12/2021 01/12/2019 Imm-Zoster, Recombinant (2 of 2) 04/01/2024 02/05/20 24 Dental Examination 04/02/2025 03/31/2024 Depression Monitoring 04/06/2025 01/07/2025 , 11/05/2024, 02/05/2024, Additional history exists Vbo-OFTTW-35 (2 - 2024- season) 2025 024, 05/01/2021 Imm-Influenza (#1) 2025 09/30/2024, 0 02/05/2024, 02/22/2023, Additional history exists Annual Wellness (Adult): Indicated (All Coverage) 11/05/2025 11/05/2024, 02/12/2018, 09/12/2017 Diabetes Screening 11/05/2025 11/05/2024, 1 01/06/2024, 02/05/2024, Additional history exists Lipid Screening 11/05/2025 11/05/2024, 0305/2024, 03/26/2023, Additional history exists Anxiety Screening 01/07/2026 01/07/2025 Hypertension Screening (#1) 06/09/2026 Tobacco Cessation Counseling (#1) 06/09/2026 06/09/2025, 11/05/2024, 03/16/2021, Additional history exists Dental FMX/Pano 04/02/2029 03/31/2024 Imm-DTaP/Tdap/Td (3 - Td or Tdap) 04/19/2029 04/19/2019, 05/21/2015, 09/14/2008 Syphilis Screening Discontinued 11/29/2016, 09/30/2016 HIV Screening Completed 11/20/2018, 01/30, 11/29/2016 Hepatitis C Screening Completed 01/15/2019 Alcohol and Drug Screen Completed 01/07/20, 11/05/2024, 02/05/2024, Additional history exists Cervical Ablation/Cold-Knife Conization Discontinued Cervical Cancer Screening Discontinued Cervical Cryotherapy Discontinued Colposcopy Discontinued Excision/Leep Discontinued HPV Genotyping Discontinued Pap Smear Discontinued Vaginal Pap Discontinued Vulvoscopy Discontinued Goals Goal Patient Goal Type Associated Problems Recent Progress Patient-Stated? Author Blood Pressure < 140/90 Blood Pressure 124/85( 025 11:02 AM EDT) No Urban Sandoval, AngelaD Procedures Procedure Name Priority Date/Time Associated Diagnosis Comments REFERRAL TO NEUROLOGY Routine 08/12/2025 3:00 AM EDT Chronic midline low back pain with right-sided sciatica OTHER ORDERS SCANNED DOCUMENT 07/26/2025 3:00 AM EDT HGA1C W/EAG Routine 11/05/2024 3:53 PM EST Hypercholesterolemi a LIPIDS W RFLX TO DIRECT LDL Routine 11/05/2024 3:53 PM EST Hypercholesterolemi a PANORAMIC RADIOGRAPHIC IMAGE Routine 03/31/2024 1:00 PM EDT Complete edentulism, unspecified edentulism class Full COMP ORAL EVALUATION - NEW/ESTABLISHED PATIENT Routine 03/31/2024 1:00 PM EDT Complete edentulism, unspecified edentulism class HEPATITIS A,B,C PANEL Routine 01/15/2019 10:10 AM EST Substance abuse ([facility]) MAMMOGRAM BI-RADS, ABSTRACTED Routine 01/12/2019 11:42 AM EST ANTIBODY HIV-1&HIV-2 SINGLE RESULT Routine 11/20/2018 9:42 AM EST Concern about STD in female without diagnosis TREPONEMA PALLIDUM ANTIBODIES Routine 11/29/2016 2:50 PM EST Chronic midline low back pain without sciatica from Last 3 Months or Most Recently Relevant to Health Maintenance Results * REFERRAL TO NEUROLOGY (08/12/2025 3:00 AM EDT) 08/12/2025 3:00 AM EDT Lokesh Dahl MD REFERRAL Final Result * OTHER ORDERS SCANNED DOCUMENT (07/26/2025 3:00 AM EDT) 07/26/2025 3:00 AM EDT Andreas Carranza HEAD CONTROL CLERK SCAN OTHER ORDERS Final R esult * HGA1C W/EAG (11/05/2024 3:53 PM EST) HEMOGLOBIN A1C 5.6 <5.7 % of total Hgb [facility]bel Comment: For the purpose of screening for the presence of diabetes: <5.7% Consistent with the absence of diabetes 5.7-6.4% Consistent with increased risk for diabetes (prediabetes) > or =6.5% Consistent with diabetes This assay result is consistent with a decreased risk of diabetes. Currently, no consensus exists regarding use of hemoglobin A1c for diagnosis of diabetes in children. According to [place] Diabetes Association (ADA) guidelines, hemoglobin A1c <7.0% represents optimal control in non- diabetic patients. Different metrics may apply to specific patient populations. Standards of Medical Care in Diabetes(ADA). EAG (MG/DL) 114 mg/dL [facility] EAG (MMOL/L) 6.3 mmol/L [facility] Blood Blood / Unknown 11/05/2024 3 :53 PM EST 11/05/2024 3:54 PM EST Narrative [facility] - 11/06/2024 10:34 AM EST FASTING:NO Lokesh Dahl MD LAB - BLOOD DRAW Edited Resu lt - Final [facility] [address] [place] [id number], [facility] [address] [place] [phone] * (ABNORMAL) LIPIDS W RFLX TO DIRECT LDL (11/05/2024 3:53 PM EST) CHOLESTEROL, TOTAL 147 <200 mg/dL [facility] HDL CHOLESTEROL 37(L) > OR = 50 mg/dL [facility] TRIGLYCERIDES 209(H) <150 mg/dL [facility] Comment: If a non-fasting specimen was collected, consider repeat triglyceride testing on a fasting specimen if clinically indicated. Hans et al. J. of Clin. Lipidol. 2015;9:129-169. LDL-CHOLESTEROL 80 99 mg/dL (calc) babbel Comment: Reference range: <100 Desirable range <100 mg/dL for primary prevention; <70 mg/dL for patients with CHD or diabetic patients with > or = 2 CHD risk factors. LDL-C is now calculated using the Geraldo calculation, which is a validated novel method providing better accuracy than the Friedewald equation in the estimation of LDL-C. Conrado MCKENZIE et al. CARY. 2013;310(19): 5150-2023 (http://education.Firetide/faq/BIW473) CHOL/HDLC RATIO 4.0 <5.0 (calc) [facility]bel NON-HDL CHOLESTEROL 110 <130 mg/dL (calc) [facility] Comment: For patients with diabetes plus 1 major ASCVD risk factor, treating to a non-HDL-C goal of <100 mg/dL (LDL-C of <70 mg/dL) is considered a therapeutic option. Blood Blood / Unknown 11/05/2024 3 :53 PM EST 11/05/2024 3:54 PM EST Narrative [facility] - 11/06/2024 10:34 AM EST FASTING:NO Lokesh Dahl MD LAB - BLOOD DRAW Final Resul t [facility] [address] [place] [phone], [facility] [address] [place] [phone] * (ABNORMAL) HEPATITIS A,B,C PANEL (01/15/2019 10:10 AM EST) HEPATITIS B SURFACE ANTIBODY NEGATIVE NEGATIVE [facility] HEPATITIS B SURFACE ANTIGEN NEGATIVE NEGATIVE [facility] Comment: Over the counter supplements containing high doses of biotin may interfere with this assay. If interference is suspected, patients shoud be retested after refraining from biotin supplements for 72 hours. HEPATITIS C VIRUS DIAGNOSTIC NEGATIVE NEGATIVE [facility] HEPATITIS B CORE ANTIBODY NEGATIVE NEGATIVE [facility] HEPATITIS A ANTIBODY TOTAL POSITIVE(A) NEGATIVE [facility] Comment: Over the counter supplements containing high doses of biotin may interfere with this assay. If interference is suspected, patients shoud be retested after refraining from biotin supplements for 72 hours. Blood specimen (specimen) Blood / Unknown 01/15/2019 10:10 AM EST 01/15/2019 10:15 AM EST Narrative [facility] - 01/15/2019 1:11 PM EST [employer], [place] [address] Lockstitch Machine Operator - Debo Booth MD PT ID [id number] ORD# [id number] Flavia Tubbs PA-C LAB - BLOOD DRAW Edited Result - Final Performing Organization Address City/State/[facility] [place] [address], * MAMMOGRAM BI-RADS, ABSTRACTED (01/12/2019 11:42 AM EST) BI-RADS ASSESSMENT 1 - Negative: means that there is no significant or noticeable abnormality to report. BI-RADS FOLLOW-UP 1 - Continue annual screening mammography (for women over age 40). Anatomical Region Laterality Modality Other Impressions 01/12/2019 11:42 AM EST [facility]-01/12/19-No mammographic evidence of malignancy in either breast. A targeted right breast ultrasound to the area of the palpable lump, also fails to demonstrate any abnormality. As the patient has not had a recent breast examination, she was advised to follow-up with her clinician. The negative breast imaging should not preclude biopsy of any worrisome palpable mass on physical exam. us Provider Fabiana JAQUEZG MAMMO Final Result * HIV-1 & HIV-2 ANTIBODIES (11/20/2018 9:42 AM EST) HIV 1 AND 2 ANTIBODY SCREEN NEGATIVE NEGATIVE [facility] Comment: This assay is a 4th generation assay allowing for earlier detection of HIV infection by detecting the presence of the HIV-1 p24 antigen as well as the traditional antibodies to HIV type 1 (including group O) and type 2. Use of a 4th generation assay is the current CDC recommendation for HIV screening. Blood specimen (specimen) Blood / Unknown 11/20/2018 9:42 AM EST 11/20/2018 9:58 AM EST [facility] - 11/20/2018 1:31 PM EST [employer], a member of [address] [address] Lockstitch Machine Operator - Debo Booth MD PT ID [id number] ORD# [id number] Vic [facility]ON[facility] LAB - BLOOD DRAW Final Result [address] [address], [place] [phone] * TREPONEMA PALLIDUM ANTIBODIES (11/29/2016 2:50 PM EST) [facility] TREPONEMAL AB NEGATIVE NEGATIVE [facility] 11/29/2016 2:50 PM EST 11/29/2016 3:14 PM EST [facility] - 11/30/2016 9:05 AM EST [employer] [address] [place] [id number] PT ID [id number] ORD# [id number] Vic [facility] LAB - BLOOD DRAW Final Result [address] [address], [place] [phone] from Last 3 Months or Most Recently Relevant to Health Maintenance Insurance [place] C3 [facility] Care Teams Security Engineer Relationship Specialty Start Date End Date Lokesh Dahl MD [address] [place] [address] PCP - General Internal Medicine 09/10/24
== END 2025-10-10 11:22 | disposition home or self-care (01) ==
LOC: HO.XRAY 11:21
PROVIDERS: PCP Physician Assistant; Referring Provider Nurse Practitioner Family; Visit Provider Nurse Practitioner Family
DX: J44.89 Other specified chronic obstructive pulmonary disease (principal); G47.34 Idiopathic sleep related nonobstructive alveolar hypoventilation; R05.9 Cough, unspecified; F17.210 Nicotine dependence, cigarettes, uncomplicated
CPT/HCPCS: 71046; 99212

== ENCOUNTER 2025-10-10 11:21 | Outpatient (AMB) | payer MEDICAID, SELFPAY ==
--- OUTSIDE RECORDS SUMMARY | 2024-12-09 03:27 | XMS_ITS | Continuity of Care Document ---
Author Organization [facility] Address [address] [place] [address] [address] [place] [phone] Phone Care Team Providers Care Lean Specialist Name Role Phone Delfino MEJIAS, MONICA, Ray FAIRCHILD Unavailable U navailable Procedures Procedure Date Office/Oupt E&M New Pt 20 Mins- CT & [place] Duplex Scan-extrem Veins; Comp- CT & [place] Advance Directives Directive Yes / No Effective Date File Name No Information Encounters Encounter Description Practice Location Reason(s) For Visit Diagnoses Date Provider Providers Copied on Encounter [facility], [address] [place] [address] Dr Brito [address] [place], [id number], tel:[phone] [facility] No Information Delfino MEJIAS, GURINDER ANDERSON. [address] [address], [place], [place], [id number] , [place]. tel:[phone] Office/Oupt E&M New Pt 20 Mins- CT & [place] [facility], [address] [place] [address] Dr [address]o [address] [place], [id number], [place] tel:[phone] CVR - [facility] Pain in right lower legPain in left lower legPain in right legPain in left legRestless legs syndromeAtheros clerotic heart disease of [place] coronary artery without angina pectorisCoronar y atherosclerosis due to lipid rich plaqueCerebral infarction, unspecifiedCram p and spasmLocalized edema 5 Delfino MEJIAS, MONICA, GURINDER Bell. [address] [facility], [address], [place], [id number] , [place]. tel:[phone] Referring Provider: [facility], [address], [place], [address]. tel:[phone] [facility], [address] [facility] [address], [place], [id number], [place] tel:[phone] CVR - [facility] Chronic venous hypertension (idiopathic) with other complications of bilateral lower extremity 5 Delfino MEJIAS RVT, GURINDER Bell. [address] [facility], [address], [place], [id number] , [place]. tel:[phone] Referring Provider: Ray Saleh MD, MONICA, GURINDER, [address] [facility] [address], [place], [address] . tel:[phone] Family History Family Member Type Diagnosis Age At Onset No Information Payers Payer name Insurance type Covered libertarian ID Authoriza tion(s) Medical Assistance [facility] [id number] Social History Type Description Quantity Date Captured Comments Sex Female Smoking Status No Information Chief Complaint And Reason For Visit No Information Reason For Referral Reason For Referral No Information Plan Of Treatment Date Type Action Status Goal Diet education completed Goal Tobacco cessation counseling completed Referral Ordered: Weight management: Referral to physician timeframe: 3 Months (related to Body mass index (BMI) 27.0-27.9, adult) ordered History Of Present Illness Encounter Date Complaint History Of Prese nt Illness No Information Functional Status Date Functional Assessmen t No Information Instructions Date Instruction Additional Infor mation Patient education booklet given Related to Pain in right lower leg Diet education Related to Body mass index (BMI) 27.0-27.9, adult Giving Encouragement to exercise Related to Body mass index (BMI) 27.0-27.9, adult Lifestyle education Related to B dior mass index (BMI) 27.0-27.9, adult Assessments Type Assessment Date No Information Patient Care Teams Name Effective Dates (start - stop) Status Members No Information
[2025-10-10 11:24] VITALS: BP 104/62; PULSE 64; O2SAT 90; BMI 27.6
--- NOTE | 2025-10-10 11:24 | MHC.OFFVIS ---
Vital Signs 10/10/25 11:24 Height 4 ft 10 in Weight 132 lb 4.438 oz BMI 27.6 BP 104/62 Blood Pressure Location Lt brachial Position Sitting Pulse 64 Pulse Source Pulse Oximeter Pulse Oximetry (%) 90 L Oxygen Delivery Method Room Air Intake Visit Reasons: nocturnal hypoxemia Allergies shellfish derived (SHELLFISH DERIVED) Allergy (Severe, Verified 10/10/25 11:30) SWELLING bee pollen (BEE STINGS) Allergy (Mild, Verified 10/10/25 11:30) SWELLING IN THROAT Fish Flavor Allergy (Unknown, Uncoded 10/10/25 11:30) Unknown HPI HPI nocturnal hypoxemia: Details: Sandy is a pleasant 55 year old female, current 40 pack year smoker, with underlying COPD/asthma, Left MCA CVA in 2014- w/ residual speech deficit/mild dysphagia, h/o polysubstance abuse on methadone, arthritis, and depression. She was referred by Neurology after sleep study revealed nocturnal hypoxemia. She underwent a sleep study in May due to ongoing sleep difficulties, which was negative for LAUREL however revealed nocturnal hypoxemia <88% for 12 consecutive minutes, necessitating further investigation and treatment. The patient does not currently use supplemental oxygen at home, although it was administered during the sleep study, 1L with resolution of hypoxemia. The patient has a history of asthma, diagnosed in childhood, never requiring intubation in addition to COPD. She uses an Anoro and reports it to be helpful, although uses albuterol MDI frequently. She also reports persistent coughing with green sputum for the past two weeks with associated chest congestion. She denies wheezing but reports occasional fevers. The patient has a significant smoking history, having smoked one pack per day for 40 years. She has attempted to quit using nicotine patches but found them ineffective, although only used NRT x 5 days and is willing to retrial. She has not had a recent lung imaging study, and a CT scan is planned to assess her lung health due to her smoking history. [facility] Medical History Anxiety and depression Chronic low back pain with right-sided sciatica Hx of diverticulitis of colon Osteoarthritis Moderate persistent asthma Renal mass Urinary retention QT prolongation PTSD (post-traumatic stress disorder) Polysubstance (excluding opioids) dependence HLD (hyperlipidemia) Hx of ischemic left MCA stroke Surgical History History of hip replacement H/O: hysterectomy H/O tubal ligation H/O knee surgery Family History Father Cancer Mother Heart failure Social History (Updated 10/10/25 @ 11:30 by Lita Neff CMA) Household Members: Spouse Housing: House Alcohol intake: current Patient Tobacco Use Status: Current everyday Tobacco user Cigarette Packs Per Day: 1 Cigarettes Per Day: 18 Review of Systems Const Denies chills, Denies excessive sweating and Denies night sweats Eyes Denies dry eyes, Denies irritation and Denies itchy eyes ENT Reports Normal hearing present, Denies nasal congestion, Denies nasal discharge, Denies post nasal drip and Denies sore throat Card Denies chest pain, Denies chest pain at rest, Denies chest pain with activity, Denies claudication, Denies leg edema, Denies orthopnea and Denies paroxysmal nocturnal dyspnea Resp Denies pain on inspiration, Denies pain with cough, Denies stridor and Denies wheezing Neuro Reports Normal hearing present Endo Denies excessive sweating Saman/Lymph Denies lymphadenopathy Aller/Immun Denies itchy eyes, Denies seasonal rhinorrhea and Denies wheezing Physical Exam Vital Signs: Last Vital Signs Pulse 64 10/10/25 11:24 BP 104/62 10/10/25 11:24 Pulse Ox 90 L 10/10/25 11:24 Oxygen Delivery Method Room Air 10/10/25 11:24 BMI result Body Mass Index 27.6 Const General: cooperative, comfortable, no acute distress and alert Orientation/consciousness: patient oriented x3 Limitations: ambulation with walker HEENT Head: Yes normal to inspection, Yes normocephalic and Yes atraumatic Ears: hearing grossly normal bilaterally and external ears normal Eyes General: appearance normal, both eyes and all related structures Eyelids: Yes eyelids normal Sclerae: sclerae normal EOM: EOMs intact bilaterally Neck Neck: Yes normal visual inspection and Yes no lymphadenopathy Lymphatic: no lymphadenopathy noted Chest Chest palpation & inspection: normal inspection of the chest Resp Effort & Inspection: normal respiratory effort, able to speak in complete sentences, no audible wheezes, no cough, no stridor, not tachypneic, no tripod positioning and no use of accessory muscles Auscultation: wheezes and diminished lung sounds Cardio Jugular venous distension: no JVD Rate: regular rate Rhythm: regular rhythm Skin Other: warm, dry General skin exam: no rashes or lesions noted Neuro General: patient oriented x3 Cranial nerves: Yes Normal hearing present Cognition (Neuro): normal cognition Extrem General: Yes normal to inspection, Yes capillary refill normal, Yes no clubbing, cyanosis or edema and Yes no pedal edema Psych Other: some word finding difficulties Appearance: grossly normal Affect: normal affect Attitude: cooperative Thought process: Normal thought process present Thought content: Normal thought content present Insight: Good insight present (Psych) Judgement: Good judgement present (Psych) Assessment & Plan Assessment & Plan (1) Asthma: Code(s): J45.909 - Unspecified asthma, uncomplicated Category: Medical (2) COPD (chronic obstructive pulmonary disease): Code(s): J44.9 - Chronic obstructive pulmonary disease, unspecified Category: Medical (3) Nocturnal hypoxemia: Code(s): G47.34 - Idiopathic sleep related nonobstructive alveolar hypoventilation Category: Medical (4) Nicotine dependence, cigarettes, uncomplicated: Code(s): F17.210 - Nicotine dependence, cigarettes, uncomplicated Category: Medical Plan The patient's inhaler will be switched to Trelegy to better manage her COPD symptoms, as suboptimal effect with Anoro. Prednisone and doxycycline are prescribed to address the current exacerbation characterized by productive cough and green sputum. She is agreeable to obtain CXR today. She is aware to call if symptoms do not improve or seek emergent care if symptoms worsen. The patient will be provided with supplemental oxygen to use for nocturnal hypoxemia, 1L NOC as well as with exertion. Discussed importance of obtaining pulse oximeter and maintain oxygen saturation >92%. Will attempt 6MWT at next visit as patient would like to hold off today, hovering around 90% on room air. Will also send for Chest CT to assess for any parenchymal condition contributing to nocturnal hypoxemia and PFT to assess severity of obstructive defect. The patient is encouraged to quit smoking, and nicotine replacement therapy options are discussed, although previous attempts with patches were unsuccessful. All questions were answered and patient is in agreement of plan, Will follow up in 6 weeks or sooner if needed. Orders: Orders XR chest 2V Today R05.9 - Cough, unspecified CT chest wo IV con Today G47.34 - Idiopathic sleep related nonobstructive alveolar hypoventilation PFT pulmonary function test Today J44.9 - Chronic obstructive pulmonary disease, unspecified, J45.909 - Unspecified asthma, uncomplicated Medications: New nicotine apply 1-21 mg NICOTINE PATCH daily for 28 days; follow with 1-14 mg PATCH daily for 14 days, then 1-7mg PATCH daily for 14 days transdermal 56 patches 0RF prednisone see taper instructions 20 mg x 5 days 20 mg (2 x 10 mg) PO DIRECTED 10 tabs 0RF doxycycline hyclate 100 mg PO BID 14 tabs 0RF eiyipuqzcui-hjaknjcjx-fnsxxvlb 200-62.5-25 mcg (Trelegy Ellipta) 1 inh inhalation DAILY 60 ea 3RF Coding Level of Care Code New Pt Level 4 (02218) Complex EM visit Add On G2211 Diagnoses Asthma J45.909 COPD (chronic obstructive pulmonary disease) J44.9 Nocturnal hypoxemia G47.34 Nicotine dependence, cigarettes, uncomplicated F17.210
--- OUTSIDE RECORDS SUMMARY | 2025-10-10 13:43 | XMS_ITS | Clinical Summary ---
Author Organization [address] [facility] Address [address] [place] [address] Phone Care Team Providers Care Dedicated Owner Operator Name Role Phone Kennedy Campbell CENTERLESS GRINDER OPERATOR Primary Care Provider Allergies Active Allergy Reactions Criticality Noted Date Comments Bee Venom Protein (Honey Bee) Swelling,Wheezing High 10/04/2019 Shellfish Derived Swelling,Wheezing High 10/04/2019 Tramadol 10/04/2019 Medications atorvastatin (LIPITOR) 40 mg tablet Take 40 mg by mouth daily. Active busPIRone (BUSPAR) 15 mg tablet Take 15 mg by mouth 3 times daily as needed for Anxiety. Active cloNIDine (CATAPRES) 0.2 mg tablet Take 0.2 mg by mouth 3 times daily. Active cyclobenzaprine (FLEXERIL) 10 mg tablet Take 10 mg by mouth 3 times daily as needed. Active DULoxetine (CYMBALTA) [address] capsule Take 60 mg by mouth daily. Active naproxen (NAPROSYN) 500 mg tablet Take 500 mg by mouth 2 times daily (with meals). Active traZODone (DESYREL) 150 mg tablet Take 150 mg by mouth at bedtime. Active WALKER MISC by Does not apply route. Active EPINEPHrine (EpiPen 2-Augustus) 0.3 mg/0.3 mL injection Inject as directed. Active umeclidinium-vi lanteroL (ANORO ELLIPTA) 62.5-25 mcg/actuation inhaler Inhale 1 Puff into the lungs daily. Active acetaminophen (TYLENOL 8 HOUR) 650 mg 8 hr tablet Take 650 mg by mouth every 8 hours as needed. Active albuterol HFA (PROAIR HFA ; PROVENTIL HFA ; VENTOLIN HFA) 90 mcg/actuation inhaler Inhale 2 Puffs into the lungs 4 times daily as needed for Cough or Wheezing. 05/08/201 3 Active multivitamin (Multiple Vitamins) tablet Take by mouth. Activ e lidocaine (XYLOCAINE) 5 % ointment Apply topically as needed. Active gabapentin (NEURONTIN) 800 mg tablet Take 800 mg by mouth 3 times daily. Active omeprazole (PriLOSEC) [address] capsule Take 20 mg by mouth daily. Active hydrOXYzine pamoate (VISTARIL) 25 mg capsule Take 1 capsule (25 mg total) by mouth 2 (two) times a day if needed for anxiety. 5 Active Active Problems Problem Noted Date Diagnosed Date Anxiety 10/04/2019 Asthma 10/04/2019 Chronic low back pain with right-sided sciatica 10/04/2019 Degenerative joint disease (DJD) of hip 10/04/20 Overview (09/14/2024): Xray 09/08/2019: Right hip moderate to severe OA, near bone on bone articulation, Cam type deformity of femoral head. Dysarthria as late effect of stroke 10/04/2019 Elevated BP without diagnosis of hypertension Major depression, recurrent, chronic ([facility] V2 4) 10/04/2019 Migraine headache 10/04/2019 Polysubstance dependence, no n-opioid, in remission ([facility] V24, [facility] V28) 10/04/2019 Prolonged QT interval 10/04/2019 Suicidal risk 10/04/2019 Overview (09/14/2024): Hospitalized [facility] 07/14/19 for medication overdose Tobacco dependence 10/04/2019 Chronic pancreatitis ([facility] V24, [facility] V28) 03/15/2013 Post traumatic stress disorder (PTSD) 02/19/2013 Immunizations Immunization Administration Dates Next Due Hepatitis B (Uqnghix-B-Cbxws , Recombivax HB-Adult) 19yo and older 09/20/2019 Influenza trivalent, with pr eservative (Fluzone; Afluria) 6mo and older 09/03/2019 Pneumococcal polysaccharide 23 valent (Pneumovax 23) 2yo and older 09/19/2015 Tdap Tetanus diptheria acell ular pertussis (Boostrix; Adacel) 7yo and older 04/19/2019 Surgical History Surgery Date Site/Laterality Comments HYSTERECTOMY 2012 PROCEDURE: HISTORICAL TOTAL HYSTERECTOMY WITH BSO LEG SURGERY PROCEDURE: HISTORICAL LEG SURGERY; COMMENT: ORIF, bilateral tib-fib fractures w/ rods MYOMECTOMY PROCEDURE: IN LAPS MYOMECTOMY EXC 1-4 MYOMAS 250 GM/< Medical History Medical History Date Comments Anxiety 10/04/2019 DX:Anxiety Asthma 10/04/2019 DX:Asthma Chronic low back pain with r ight-sided sciatica 10/04/2019 DX:Chronic low back pain wit h right-sided sciatica Chronic pancreatitis (CMS/ C V24, CMS/HCC V28) 03/15/2013 DX:Chronic pancreatitis (HCC ) Degenerative joint disease ( DJD) of hip 10/04/2019 DX:Degenerative joint diseas e (DJD) of hip; COMMENT: Xray 09/08/2019: Right hip moderate to severe OA, near bone on bone articulation, Cam type deformity of femoral head. Dysarthria as late effect of stroke 10/04/2019 DX:Dysarthria as late effect of stroke Elevated BP without diagnosi s of hypertension 10/04/2019 DX:Elevated BP without diagn osis of hypertension History of diverticulitis of colon 10/04/2019 DX:History of diverticulitis of colon; COMMENT: CT [facility] 01/21/19 History of ischemic left MCA stroke 10/04/2019 DX:History of ischemic left MCA stroke; COMMENT: 08/2015?, [facility] 12/22/18 Major depression, recurrent, chronic (CMS/HCC V24) 10/04/2019 DX:Major depression, recurre nt, chronic (HCC) Migraine headache 10/04/2019 DX:Migraine he adache Polysubstance dependence, no n-opioid, in remission (CMS/HCC V24, CMS/HCC V28) 10/04/2019 DX:Polysubstance dependence, non-opioid, in remission ([facility]) Post traumatic stress disorder (PTSD) 02/19/2013 DX:Post traumatic stress disorder (PTSD) Prolonged QT interval 10/04/2019 DX:Prolong ed QT interval Suicidal risk 10/04/2019 DX:Suicidal risk ; COMMENT: Hospitalized [facility] 07/14/19 for medication overdose Tobacco dependence 10/04/2019 DX:Tobacco de pendence Family History Medical History Relation Name Comments Alcohol/Drug Father Cancer Alcohol/Drug Mother Relation Name Status Comments Father Mother Sister Alive Social History Tobacco Use Types Packs/Day Years Used Date Smoking Tobacco: Every Day Cigarettes Smokeless Tobacco: Never Alcohol Use Standard Drinks/Week Comments Not Asked 0 (1 standard drink = 0.6 oz pur e alcohol) Comments Unknown Sex and Gender Information Value Date Recorded Sex Assigned at Not on file Legal Sex Female 1:28 PM EST Gender Identity Not on file Sexual Orientation Not on file Obstetrics History Last Filed Vital Signs Vital Sign Reading Time Taken Comments Blood Pressure 85/60 01/27/2025 3:03 PM EST Pulse 74 01/27/2025 3:03 PM EST Temperature - - Respiratory Rate - - Oxygen Saturation 83% 01/27/2025 3:03 PM EST Inhaled Oxygen Concentration - - Weight 61.7 kg (136 lb) 01/27/2025 3:03 PM EST Height 147.3 cm (4' 10 ) 01/27/2025 3:03 PM EST Body Mass Index 28.42 01/27/2025 3:03 PM EST Plan of Treatment Health Maintenance Due Date Last Done Comments Breast Cancer Screening 1969 Colorectal Cancer Screening: Colonoscopy 1969 Hepatitis A Vaccines (1 of 2 - Risk 2-dose series) 1988 Cervical Cancer Screening: Pap Smear 1990 Pneumococcal Vaccine: 50+ Years (2 of 2 - PCV) 11/21/2018 11/21/2017, 09/19/2015, 08/26/2011, Additional history exists RSV Immunization Adult Patients (1 - Risk 50-74 years 1-dose series) 2019 Hepatitis B Vaccines (3 of 3 - 19+ 3-dose series) 03/29/2020 02/02/2020, 09/20/2019 Hepatitis C Screening 10/29/2022 Lung Cancer Screening (Low Dose CT) 10/29/2022 Social Influencers of Health Screening 10/29/2022 Zoster Vaccines (2 of 2) 04/01/2024 02/05/2024 Depression Screening 12/01/2024 Influenza Vaccine (#1) 2025 , 09/22/2024, 02/05/2024, Additional history exists DTaP,Tdap,and Td Vaccines (4 - Td or Tdap) 04/19/2029 04/19/2019, 05/21/2015, 09/14/2008 Cholesterol Screening (Lipid Panel) 11/05/2029 11/05/2024, 02/05/2024, 03/26/2023, Additional history exists HIV Screening Completed 11/20/2018 COVID-19 Vaccine Completed 09/30/2024, , 02/22/2023, Additional history exists HIB Vaccines Aged Out No longer eligi ble based on patient's age to complete this topic HPV Vaccines Aged Out No longer eligi ble based on patient's age to complete this topic IPV Vaccines Aged Out No longer eligi ble based on patient's age to complete this topic MMR Vaccines Aged Out No longer eligi ble based on patient's age to complete this topic Meningococcal ACWY Vaccine Aged Out N o longer eligible based on patient's age to complete this topic Meningococcal B Vaccine Aged Out No l onger eligible based on patient's age to complete this topic RSV Immunization Patients Under 20 months Aged Out No longer eligible based on patient's age to complete this topic Varicella Vaccines Aged Out No longer eligible based on patient's age to complete this topic Insurance [place]ICA[place] - [place] Advance Directives Documents on File Type Date Recorded 

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
== END 2025-10-10 11:57 | disposition home or self-care (01) ==
LOC: HO.HPS 11:22
PROVIDERS: PCP Physician Assistant; Referring Provider Nurse Practitioner Family; Visit Provider Nurse Practitioner Family
DX: J45.909 Unspecified asthma, uncomplicated (principal); J44.9 Chronic obstructive pulmonary disease, unspecified; G47.34 Idiopathic sleep related nonobstructive alveolar hypoventilation; F17.210 Nicotine dependence, cigarettes, uncomplicated
CPT/HCPCS: 99204

== ENCOUNTER → 2025-10-10 12:14 | Outpatient (BNV) | payer MEDICAID, SELFPAY | PROVIDERS: PCP Physician Assistant; Referring Provider Nurse Practitioner Family; Visit Provider Radiology Diagnostic Radiology | DX: R05.9 Cough, unspecified (principal) | CPT/HCPCS: 71046 ==

== ENCOUNTER 2025-11-07 12:53 | Outpatient (AMB) | payer MEDICAID, SELFPAY ==
--- OUTSIDE RECORDS SUMMARY | 2024-12-09 03:27 | XMS_ITS | Continuity of Care Document ---
Author Organization [facility] Address [address] [place] [address] [address] [place] [address] Phone Care Team Providers Care Fitness And Wellness Director Name Role Phone Delfino MEJIAS, MONICA, Ray FAIRHCILD Unavailable U navailable Procedures Procedure Date Office/Oupt E&M New Pt 20 Mins- CT & [place] Duplex Scan-extrem Veins; Comp- CT & [place] Advance Directives Directive Yes / No Effective Date File Name No Information Encounters Encounter Description Practice Location Reason(s) For Visit Diagnoses Date Provider Providers Copied on Encounter [facility], [address] [place] [address] Dr Brito [address]Suite [place], [id number], tel:[phone] [facility] No Information Delfino MEJIAS, GURINDER ANDERSON. [address] [address], [place], [place], [id number] , [place]. tel:[phone] Office/Oupt E&M New Pt 20 Mins- [place] & [place] [facility], [address] [place] [address] Dr Brito [address] [place], [id number], [place] tel:[phone] CVR - [facility] Pain in right lower legPain in left lower legPain in right legPain in left legRestless legs syndromeAtheros clerotic heart disease of [place] coronary artery without angina pectorisCoronar y atherosclerosis due to lipid rich plaqueCerebral infarction, unspecifiedCram p and spasmLocalized edema 5 Delfino MEJIAS, MONICA, GURINDER Bell. [address] [facility], [address], [place], [id number] , [place]. tel:[phone] Referring Provider: [facility], [address], [place], [address]. tel:[phone] [facility], [address] [facility] [address], [place], [id number], [place] tel:[phone] [facility] - [facility] Chronic venous hypertension (idiopathic) with other complications of bilateral lower extremity 5 Delfino MEJIAS RVT, GURINDER Bell. [address] [facility], [address], [place], [id number] , [place]. tel:[phone] Referring Provider: Ray Saleh MD, MONICA, GURINDER, [address] [facility] [address], [place], [address] . tel:[phone] Family History Family Member Type Diagnosis Age At Onset No Information Payers Payer name Insurance type Covered libertarian ID Authoriza tion(s) Medical Assistance [facility] [id number] Social History Type Description Quantity Date Captured Comments Sex Female Smoking Status No Information Chief Complaint And Reason For Visit No Information Reason For Referral Reason For Referral No Information Plan Of Treatment Date Type Action Status Goal Tobacco cessation counseling completed Goal Diet education completed Referral Ordered: Weight management: Referral to physician timeframe: 3 Months (related to Body mass index (BMI) 27.0-27.9, adult) ordered History Of Present Illness Encounter Date Complaint History Of Prese nt Illness No Information Functional Status Date Functional Assessmen t No Information Instructions Date Instruction Additional Infor mation Lifestyle education Related to B dior mass index (BMI) 27.0-27.9, adult Giving Encouragement to exercise Related to Body mass index (BMI) 27.0-27.9, adult Diet education Related to Body mass index (BMI) 27.0-27.9, adult Patient education booklet given Related to Pain in right lower leg Assessments Type Assessment Date No Information Patient Care Teams Name Effective Dates (start - stop) Status Members No Information
--- NOTE | 2025-11-07 13:28 | A.OFFVIS_ITS ---
Intake Visit Reasons: 6MWT Allergies shellfish derived (SHELLFISH DERIVED) Allergy (Severe, Verified 10/10/25 11:30) SWELLING bee pollen (BEE STINGS) Allergy (Mild, Verified 10/10/25 11:30) SWELLING IN THROAT Fish Flavor Allergy (Unknown, Uncoded 10/10/25 11:30) Unknown [facility] Medical History Anxiety and depression Chronic low back pain with right-sided sciatica Hx of diverticulitis of colon Osteoarthritis Moderate persistent asthma Renal mass Urinary retention QT prolongation PTSD (post-traumatic stress disorder) Polysubstance (excluding opioids) dependence HLD (hyperlipidemia) Hx of ischemic left MCA stroke Surgical History History of hip replacement H/O: hysterectomy H/O tubal ligation H/O knee surgery Family History Father Cancer Mother Heart failure Social History (Updated 10/10/25 @ 11:30 by Lita Neff [facility]) Household Members: Spouse Housing: House Alcohol intake: current Patient Tobacco Use Status: Current everyday Tobacco user Cigarette Packs Per Day: 1 Cigarettes Per Day: 18 Office Procedures 6 Minute Walk Time:: 13:10 SPO2 % at rest: 93 Pulse at rest: 87 SPO2 % during excercise: 86 Pulse during excercise: 92 SPO2 % after excercise: 98 Pulse after excercise: 77 Distance in yards walked: 50 Westley Score: 8 Performance Observations:: Patient walked on level ground using a walker. Walked for one minute and O2 saturation dropped to 86% with pulse of 92..O2 applied via nasal cannula at 1L with very little effect. Increased to 2L and O2 saturation increased to 96-98%. Patient reports she is very short of breath with any ambulation. Patient did benefit from the use of supplemental oxygen. Patient was able to walk with walker and maintain O2 saturation in the 90's. [id number] - 6 Minute Walk Assessment & Plan Assessment & Plan (1) COPD (chronic obstructive pulmonary disease): Code(s): J44.9 - Chronic obstructive pulmonary disease, unspecified Category: Medical Plan 6mwt Orders: Orders AMB 6 minute walk Today J44.9 - Chronic obstructive pulmonary disease, unspecified Coding Level of Care Code Est Pt Level 1 (12910) Diagnoses COPD (chronic obstructive pulmonary disease) J44.9 CPT Codes Coding ([id number])
[2025-11-07 13:39] VITALS: PULSE 87; O2SAT 93
--- OUTSIDE RECORDS SUMMARY | 2025-11-07 21:36 | XMS_ITS | Patient Health Record ---
Author Organization [facility] Address [address] [place] [address] Care Team Providers Care Livestock Haulier Name Role Phone Alex Tellez Primary Care Provider Reason For Referral No Information Medications Medication SIG (Take, Route, Frequency, Duration) Notes Start Date End Date Status INDOCIN SR 75 MG CAPSULE 0; Duration: 30 *please review for potential update for e-prescription and drug interaction check* 10/11/2010 Active traZODone HCl 50 MG 0 Oral hs; Duration: 30 10/10/2010 Active INDOMETHACIN 75 MG CAPSULE 60 1 BID; Duration: 30 *please review for potential update for e-prescription and drug interaction check* 10/11/2010 Active predniSONE 20 MG 26 Oral 3 tabs x 4 days / 2 tabs x 4 days / 1 tab x 4 days / 1/2 tab x 4 days q am with food; Duration: 0 09/17/2010 Active VERAPAMIL 240 MG TABLET 60 1 tab hs X3 days, 1.5 tab qhs x 3 days, then 2 qhs.; Duration: 30 *please review for potential update for e-prescription and drug interaction check* 09/17/2010 Active Ambien 10 MG 0 Oral hs prn; Duration: 30 10/10/2010 Active SUMATRIPTAN SUCCINATE 100 MG TABLET 1 at onset of migraine. May repeat after 2 hours prn. Limit 2 tabs in 24 hours.; Duration: 0 *please review for potential update for e-prescription and drug interaction check* 09/17/2010 Active Topamax 100 MG 0 Oral 1/2 in am, 1 qhs; Duration: 30 10/10/2010 Active ONDANSETRON HCL 8 MG 20 Take 1 tablet by mouth Q6H prn nausea/vomiting; Duration: 0 *please review for potential update for e-prescription and drug interaction check* 09/17/2010 Active NORTRIPTYLINE HCL 75 MG CAP 0 qhs; Duration: 30 *please review for potential update for e-prescription and drug interaction check* 10/10/2010 Active ALPRAZolam 0.5 MG 0 Oral tid; Duration: 30 10/10/2010 Active SUMATRIPTAN 6 MG/0.5 ML REFILL 0 prn; Duration: 30 *please review for potential update for e-prescription and drug interaction check* 10/10/2010 Active PERCOCET 5-325 MG TABLET 0 1 prn; Duration: 30 *please review for potential update for e-prescription and drug interaction check* 10/10/2010 Active Plan Of Treatment No Information Insurance Providers Payer Name Payer Address Payer Phone Subscriber Number Group Number Insured Name Patient Relationship to Insured Coverage Start Date Coverage End Date BCBS PPO [address] [place], [place] [id number] Sandy Moser Self - patient is the insured [place] Medicaid [address] [place] [address] [id number] Sandy Moser Self - patient is the insured
--- OUTSIDE RECORDS SUMMARY | 2025-11-07 21:37 | XMS_ITS | Patient Health Record ---
Author Organization [facility] Address [address] [place] [address] Care Team Providers Care Director Of Housing Name Role Phone Dafne MEJIAS,MPH, Tigre Giana Allergies Allergen (clinical drug ingredient) Drug/Non Drug Allergy documented on EMR Reaction Allergy Type Onset Date Status tramadol traMADol vomiting and hives Drug Allergy Active Reason For Referral No Information Medications Medication SIG (Take, Route, Frequency, Duration) Notes Start Date End Date Status HYDROcodone-Acetami nophen *Please review and pick correct strength-formulation from [employer] options. If intended option is not shown, discontinue and re-order from Quick Search* Active diazePAM *Please review a nd pick correct strength-formulation from [employer] options. If intended option is not shown, discontinue and re-order from Quick Search* Active HYDROcodone-Acetami nophen 500 MG-5 MG 2 TAB(S) ORALLY QHS; Duration: 10 DAY(S) *Please review and pick correct strength-formulation from [employer] options. If intended option is not shown, discontinue and re-order from Quick Search* 07/18/2009 Active PriLOSEC *Please review a nd pick correct strength-formulation from [employer] options. If intended option is not shown, discontinue and re-order from Quick Search* Active Plan Of Treatment No Information Insurance Providers Payer Name Payer Address Payer Phone Subscriber Number Group Number Insured Name Patient Relationship to Insured Coverage Start Date Coverage End Date [facility] [place] [address] [id number] Jaime Moser Spouse - patient is the spouse of the insured [facility] [address] [place] [address] [id number] Sandy Moser Self - patient is the insured Medical (General) History Medical History History ICD Code stress chronic back pain Surgical History Surgery Date(Month/Year) Breast Bx bladder suspension, unspecified hysterectomy partial Hospitalization History Reason Date(Month/Year) Kidney stones
== END 2025-11-07 14:00 | disposition home or self-care (01) ==
LOC: HO.HPS 12:53
PROVIDERS: PCP Physician Assistant; Visit Provider Nurse Practitioner Family
DX: J44.9 Chronic obstructive pulmonary disease, unspecified (principal)
CPT/HCPCS: 94618

== ENCOUNTER → 2025-11-07 12:53 | Outpatient (BNVA) | payer MEDICAID, SELFPAY | PROVIDERS: PCP Physician Assistant; Visit Provider Nurse Practitioner Family | DX: J44.9 Chronic obstructive pulmonary disease, unspecified (principal); F17.210 Nicotine dependence, cigarettes, uncomplicated | CPT/HCPCS: 94618; 99211 ==

== ENCOUNTER 2025-11-08 14:27 | Outpatient (AMB) | payer MEDICAID, SELFPAY ==
[2025-11-08 14:32] VITALS: BP 100/60; PULSE 66; O2SAT 96; BMI 28.0
--- NOTE | 2025-11-08 14:32 | A.OFFVIS_ITS ---
Vital Signs 11/08/25 14:32 Height 4 ft 10 in Weight 134 lb BMI 28.0 BP 100/60 Blood Pressure Location Lt brachial Position Sitting Pulse 66 Pulse Source Pulse Oximeter Pulse Oximetry (%) 96 Oxygen Delivery Method Room Air Intake Visit Reasons: Follow Up 6mo Intake Note: Patient presents 6 month follow up for migraines. Door Clamper Required: No Accompanied by: Self / Same As Patient Allergies shellfish derived (SHELLFISH DERIVED) Allergy (Severe, Verified 11/08/25 14:56) SWELLING bee pollen (BEE STINGS) Allergy (Mild, Verified 11/08/25 14:56) SWELLING IN THROAT Fish Flavor Allergy (Unknown, Uncoded 11/08/25 14:56) Unknown Medication List - Last Reconciled 11/08/25 by AIYANA Gonzalez acetaminophen 500 mg PO Q6H PRN aspirin 81 mg PO DAILY 30 days atorvastatin 40 mg PO DAILY cholecalciferol (vitamin D3) 50 mcg PO DAILY docusate sodium 100 mg PO DAILY doxycycline hyclate 100 mg PO BID duloxetine 60 mg PO DAILY eptinezumab-jjmr (Vyepti) 300 mg (3 mL) IV [id number] 90 days fluticasone furoate-vilanterol 200-25 mcg/dose (Breo Ellipta) 1 inh inhalation DAILY zxolkplgajt-mpfdnprnt-hazndpsq 200-62.5-25 mcg (Trelegy Ellipta) 1 inh inhalation DAILY gabapentin 800 mg PO BEDTIME hydroxyzine pamoate 25 mg PO BID PRN magnesium oxide 400 mg PO BEDTIME 90 days meloxicam 15 mg PO DAILY methadone 150 mg PO DAILY naloxone 0.4 mg subcut Q2M PRN nicotine apply 1-21 mg NICOTINE PATCH daily for 28 days; follow with 1-14 mg PATCH daily for 14 days, then 1-7mg PATCH daily for 14 days transdermal oxybutynin chloride 2.5 mg PO BID PRN prazosin 2 mg PO BEDTIME prednisone 20 mg (2 x 10 mg) PO DIRECTED riboflavin (vitamin B2) 400 mg PO DAILY 90 days rizatriptan 5 - 10 mg (0.5 - 1 x 10 mg) PO Q2H PRN 21 days trazodone 200 mg PO BEDTIME PRN umeclidinium 62.5 mcg/actuation (Incruse Ellipta) 1 inh inhalation DAILY umeclidinium-vilanterol 62.5-25 mcg/actuation (Anoro Ellipta) 1 inh inhalation DAILY HPI Comments Details: 54-yr-old female presents for f/u visit of migraine. Accompanied by her friend. Pt denies any significant interval medical history changes. 06/29/2025, in-lab PSG: AHI 0 per hour, O2 elvie 80%, SpO2 under 88% for 12.6 minutes, periodic limb movements of sleep 0 per hour. After review of the sleep study, the refer the patient for pulmonary consultation. She had a a [facility] ER evaluation in early August- per her partner, due to accidentally taking an extra dose of methadone, where a head CT and head neck CTA were unremarkable in the setting of known history of CVA. She reports that she continues to have right-sided constant headache. Her last nerve block was in May at [facility]. Her last Vyepti infusion was in May, which was helpful, however she can not state why she did not have the follow-up infusion which would have been due in August. She is open to having follow-up nerve block. She is asking for help to help her manage the headache pain, phonophobia. Her triptan can be helpful She states sometimes applying Abdoulaye-Heller to the right side of her head helps some She continues to use Trazodone 300mg qhs and prazosin for sleep. Baseline headache characteristics: Aura: Sees floaters during the headache Headache: Severe, Blurry vision, frontal, bitemporal, throbbing and sharp pains. A/w photophobia, phonophobia, nausea, vomiting, dizziness, tiredness, brain fog Focal weakness, Parethesias, Autonomic s/s- ? right foot numbness/pins/needles sensation- after the headache. Postdrome: Has a residual gross taste [facility] Medical History Anxiety and depression Chronic low back pain with right-sided sciatica Hx of diverticulitis of colon Osteoarthritis Moderate persistent asthma Renal mass Urinary retention QT prolongation PTSD (post-traumatic stress disorder) Polysubstance (excluding opioids) dependence HLD (hyperlipidemia) Hx of ischemic left MCA stroke Surgical History History of hip replacement H/O: hysterectomy H/O tubal ligation H/O knee surgery Family History Father Cancer Mother Heart failure Social History Household Members: Spouse Housing: House Alcohol intake: current Patient Tobacco Use Status: Current everyday Tobacco user Cigarette Packs Per Day: 1 Cigarettes Per Day: 18 Physical Exam Vital Signs: Last Vital Signs Pulse 66 11/08/25 14:32 BP 100/60 11/08/25 14:32 Pulse Ox 96 11/08/25 14:32 Oxygen Delivery Method Room Air 11/08/25 14:32 BMI result Body Mass Index 28.0 Const General: cooperative and no acute distress Resp Effort & Inspection: normal respiratory effort and able to speak in complete sentences Neuro Other: A&O x's 3, w/ STM lapses, though overall clearer today. Dysarthria, some word finding difficulties. Antalgic gait. Psych Appearance: grossly normal Mental Status: mental status grossly normal Attitude: cooperative Results Reviewed Results Reviewed: RESULT: CT Angio Neck 08/04/2025, CT Angio Head, CT Angio Neck Hx of Present Illness: Pt c o R sided headache, worse on palpation, R eye blurry vision and NV x 2 weeks. Hx CVA in 2014 and migraines; Reason: Other:; Neuro deficit, acute, stroke suspected; Clinical Question(s): Other:; Hematoma Aneurysm; Order Comment: / Other: TECHNIQUE: CT angiogram of the head and neck was performed after bolus administration of intravenous contrast. 100 mL of Isovue 300 was administered intravenously. Coronal and sagittal MIP reformatted images were obtained. Tate tional 3-D images were created on a separate workstation under concurrent supervision by the attending radiologist. All stenoses are measured using NASCET criteria. Weight-based protocol using automatic tube modulation was used to optimize exposure parameters. CTDIvol Body: 12.03 mGy, DLP Body: 414 mGy*cm. CTDIvol Head: 48.30 mGy, DLP Head: 773 mGy*cm. COMPARISON: Noncontrast CT head performed concurrently. 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 There is mild atherosclerotic plaque of the aortic arch, but origins of the supra aortic vessels are patent. Right carotid system: The common carotid and cervical internal carotid arteries are patent. There is calcified atherosclerotic plaque at the carotid bifurcation, but no ICA stenosis (0%) by NASCET criteria. Left carotid system: The common carotid and cervical internal carotid arteries are patent. There is predominantly noncalcified atherosclerotic plaque at the carotid bifurcation, but no ICA stenosis (0%) by NASCET criteria. There is a co-dominant vertebral artery system. Right vertebral: Patent. Left vertebral: Patent. Other: Soft tissues and bones: Nonspecific prominent upper mediastinal lymph nodes. No definite suspicious mass lymphadenopathy is noted within the neck. Subcentimeter thyroid nodularity, not requiring follow-up given the small size. Emphysema. Otherwise visualized lungs are clear. Multilevel degenerative changes of the spine are noted, without acute osseous abnormality. CTA OF THE HEAD: Anterior circulation: Bilateral intracranial ICAs and their DAVID and MCA branches are patent. Posterior circulation: Bilateral intracranial vertebral arteries, the basilar artery, and bilateral superior cerebellar and posterior cerebral artery branches are patent. Veins: Major dural venous sinuses are patent. Other: Soft tissues and bones: No midline shift or effacement of the basal cisterns. No space-occupying hemorrhage. No acute territorial loss of hernandez-white matter differentiation. There have been lens extractions bilaterally. Bilateral mastoid effusions are noted, chronic. IMPRESSION: No proximal occlusion or high grade stenosis in the major arteries of the head and neck. Nonspecific prominent upper mediastinal lymph nodes, possibly reactive. RESULT: CT Head/Brain W/O Contrast 08/04/2025, CT Head/Brain W/O Contrast INDICATION: Hx of Present Illness: Pt c o R sided headache, worse on palpation, R eye blurry vision and NV x 2 weeks. Hx CVA in 2015 and migraines; Reason: Neuro deficit, acute, stroke suspected; Clinical Question(s): Hematoma Infarction TECHNIQUE: Noncontrast head CT using axial technique and reconstructed in axial and coronal planes. Iterative reconstruction techniques are used to optimize dose and image quality. CTDIvol Body: 12.03 mGy, DLP Body: 414 mGy*cm. CTDIvol Head: 48.30 mGy, DLP Head: 773 mGy*cm. COMPARISON: Most recent 02/03/2024. FINDINGS: Fugitive Investigator view findings, lines and tubes: None. BRAIN AND EXTRA-AXIAL SPACES: Chronic encephalomalacia within the left temporoparietal region. Probable previous infarct. No parenchymal hemorrhage, midline shift, or mass effect. Hernandez-white matter differentiation is well preserved. No acute infarct. Negative insular ribbon sign. Atherosclerotic vascular calcification of the carotid arteries but negative hyperdense vessel sign. Mild prominence of the ventricles and sulci consistent with parenchymal volume loss. Mild low-density white matter changes. No subarachnoid hemorrhage. No subdural or epidural collection. CALVARIUM, SKULL BASE, AND SOFT TISSUES: No fractures or suspicious bony lesions. Small retention cysts within the right ethmoid sinus. Nonspecific small effusions of the bilateral mastoid air cells, similar to prior. Status-post bilateral lens extraction. The extracranial soft tissues are unremarkable. IMPRESSION: No acute intracranial pathology. Assessment & Plan Assessment & Plan (1) Migraine with aura: Code(s): G43.109 - Migraine with aura, not intractable, without status migrainosus Category: Medical Qualifiers: Status migrainosus presence: without status migrainosus Intractability: not intractable Qualified Code(s): G43.109 - Migraine with aura, not intractable, without status migrainosus (2) Methadone maintenance therapy patient: Code(s): F11.20 - Opioid dependence, uncomplicated Category: Medical (3) Anxiety and depression: Code(s): F41.9 - Anxiety disorder, unspecified; F32.A - Depression, unspecified Category: Medical (4) Insomnia: Code(s): G47.00 - Insomnia, unspecified Category: Medical (5) Hx of ischemic left MCA stroke: Code(s): Z86.73 - Personal history of transient ischemic attack (TIA), and cerebral infarction without residual deficits Category: Medical Plan For h/o chronic left MCA infarct: Continue to optimize CV risk factors. BP has been running normotensive. Continue ASA 81mg qhs. Continue statin. For sleep difficulties: Follow-up with pulmonology as scheduled for management of supplemental O2 Continue trazodone and prazosin- order via outside provider For overall headache management: Discussed importance of good self-care, including but not limited to maintaining a healthy diet, adequate fluid intake, adequate sleep, and engaging in regular physical activity. Track headaches. For acute headache treatment: We will arrange for follow-up nerve block- occipital and possibly right temporal Trial topical lidocaine gel 5%- apply sparingly to right side of head, 4 times a day as needed. * Alternatively, trial Darlin Hayes. Continue Rizatriptan 10mg tab, 1/2 - 1 tab (5-10mg) at onset of headache, may repeat in 2 hours. Max of 2 tabs (200mg) per 24 hours. May take with OTC Tylenol 650mg every 4 hours, Ibuprofen (liquigel) 600mg every 6 hours, or Naproxen (liquigel) 440mg every 12 hours as needed. Previous acute migraine medication trials: Sumatriptan- ineffective Acute migraine medication contraindications: None at this time For headache prevention medication: Continue Riboflavin 400mg daily in the morning Continue Magnesium 400mg daily at bedtime Start Depakote 250mg twice a day- this may help mood, as well as headache * Check labs in 1 month Continue Vyepti from 100mg IV q 3 months 300 mg IV Q 3 months- as patient previously has had good reduction in monthly migraine days of greater than 50% reduction with the use. Previous migraine prevention medication trials: Amitriptyline and Topiramate- ineffective. Emgality-pt was unable to manage the multiple steps involved in obtaining, storing, and administering a monthly injectable tx. Migraine prevention medication contraindications: BBs d/t asthma dx. Aimovig or Qulipta d/t constipation. Will follow-up upon review of above and patient to follow-up in clinic in 3-4 months or sooner prn. Orders: Orders Complete Blood Count Auto Diff Today F32.A - Depression, unspecified, F41.9 - Anxiety disorder, unspecified, J44.9 - Chronic obstructive pulmonary disease, unspecified, Z79.899 - Other usp (current) drug therapy Valproate Today F32.A - Depression, unspecified, F41.9 - Anxiety disorder, unspecified, J44.9 - Chronic obstructive pulmonary disease, unspecified, Z79.899 - Other ferry terminal agent (current) drug therapy Comprehensive Met. Panel Today F32.A - Depression, unspecified, F41.9 - Anxiety disorder, unspecified, J44.9 - Chronic obstructive pulmonary disease, unspecified, Z79.899 - Other usp (current) drug therapy Medications: New lidocaine 5% apply sparingly to right side of head 4 times a day PRN; 30 grams 3RF headache 14 days divalproex (Depakote) 250 mg PO Q12H 60 tabs 6RF 30 days G43.109 - Migraine with aura, not intractable, without status migrainosus Refilled eptinezumab-jjmr (Vyepti) administer over 30 mins 300 mg (3 mL) IV [id number] 90 days G43.109 - Migraine with aura, not intractable, without status migrainosus Coding Level of Care Code Est Pt Level 4 (25539) Diagnoses Migraine with aura and without status migrainosus, not intractable G43.109 Status migrainosus presence: without status migrainosus Intractability: not intractable Methadone maintenance therapy patient F11.20 Anxiety and depression F41.9; F32.A Insomnia G47.00 Hx of ischemic left MCA stroke Z86.73
--- OUTSIDE RECORDS SUMMARY | 2025-11-08 20:23 | XMS_ITS | Patient Health Record ---
Author Organization [facility] Address [address] [place] [address] Care Team Providers Care Bobbin Handler Name Role Phone Alex Tellez Primary Care Provider [phone] Reason For Referral No Information Medications Medication [...] Coverage End Date BCBS PPO [address] [place], [place] [id number] Sandy Moser Self - patient is the insured [place] Medicaid [address] [place] [address] [id number] Sandy Moser Self - patient is the insured
--- OUTSIDE RECORDS SUMMARY | 2025-11-08 20:23 | XMS_ITS | Patient Health Record ---
Author Organization [facility] Address [address] [place] [address] Care Team Providers Care Diesel Locomotive Crane Operator Name Role Phone Dafne MEJIAS,MPH, Tigre Giana Allergies Allergen (clinical drug ingredient) Drug/Non Drug Allergy documented on EMR Reaction Allergy Type Onset Date Status tramadol traMADol vomiting and hives Drug Allergy Active Reason For Referral No Information Medications Medication SIG (Take, Route, Frequency, Duration) Notes Start Date End Date Status HYDROcodone-Acetami nophen *Please review and pick correct strength-formulation from [employer] options. If intended option is not shown, discontinue and re-order from Quick Search* Active diazePAM *Please review a nd pick correct strength-formulation from [employer] options. If intended option is not shown, discontinue and re-order from Quick Search* Active HYDROcodone-Acetami nophen 500 MG-5 MG 2 TAB(S) ORALLY QHS; Duration: 10 DAY(S) *Please review and pick correct strength-formulation from [employer] options. If intended option is not shown, discontinue and re-order from Quick Search* 07/18/2009 Active PriLOSEC *Please review a nd pick correct strength-formulation from [employer] options. If intended option is not shown, discontinue and re-order from Quick Search* Active Plan Of Treatment No Information Insurance Providers Payer Name Payer Address Payer Phone Subscriber Number Group Number Insured Name Patient Relationship to Insured Coverage Start Date Coverage End Date [facility] [place] [address] [id number] Jaime Moser Spouse - patient is the spouse of the insured [facility] [address] [place] [phone] [id number] Sandy Moser Self - patient is the insured Medical (General) History Medical History History ICD Code stress chronic back pain Surgical History Surgery Date(Month/Year) Breast Bx bladder suspension, unspecified hysterectomy partial Hospitalization History Reason Date(Month/Year) Kidney stones
--- OUTSIDE RECORDS SUMMARY | 2025-11-08 20:23 | XMS_ITS | Clinical Summary ---
Author Organization 175 [facility] Address [address] [place] [address] Phone Care Team Providers Care Wellness Assistant Name Role Phone Kennedy Campbell HOUSEKEEPER MANAGER Primary Care Provider Allergies Active Allergy Reactions [...] Degenerative joint disease (DJD) of hip 10/04/20 19 Overview (09/14/2024): Xray 09/08/2019: Right hip moderate to severe OA, near bone on bone articulation, Cam type deformity of femoral head. Dysarthria as late effect of stroke 10/04/2019 Elevated BP without diagnosis of hypertension Major depression, recurrent, chronic 10/04/2019 Migraine headache 10/04/2019 Polysubstance dependence, non-opioid, in remissi on 10/04/2019 Prolonged QT interval 10/04/2019 Suicidal risk 10/04/2019 Overview (09/14/2024): Hospitalized [facility] 07/14/19 for medication overdose Tobacco dependence 10/04/2019 Chronic pancreatitis 03/15/2013 Post traumatic stress disorder (PTSD) 02/19/2013 Immunizations Immunization Administration Dates Next Due Hepatitis B (Silbcfo-X-Nhskf , Recombivax HB-Adult) 19yo and older 09/20/2019 [...] bilateral tib-fib fractures w/ rods MYOMECTOMY PROCEDURE: HI LAPS MYOMECTOMY EXC 1-4 MYOMAS 250 GM/< Medical History Medical History Date Comments Anxiety 10/04/2019 DX:Anxiety Asthma 10/04/2019 DX:Asthma Chronic low back pain with r ight-sided sciatica 10/04/2019 DX:Chronic low back pain wit h right-sided sciatica Chronic pancreatitis ([facility]/ C V24, [facility] V28) 03/15/2013 DX:Chronic pancreatitis (HCC ) Degenerative [...] [facility] 12/22/18 Major depression, recurrent, chronic ([facility] V24) 10/04/2019 DX:Major depression, recurre nt, chronic ([facility]) Migraine headache 10/04/2019 DX:Migraine he adache Polysubstance dependence, no n-opioid, in remission ([facility] V24, [facility] V28) 10/04/2019 DX:Polysubstance dependence, non-opioid, in remission ([facility]) Post traumatic stress disorder (PTSD) 02/19/2013 DX:Post traumatic stress disorder (PTSD) Prolonged QT interval 10/04/2019 DX:Prolong ed QT interval Suicidal risk 10/04/2019 DX:Suicidal risk ; COMMENT: Hospitalized [facility] 07/14/19 for medication overdose Tobacco dependence 10/04/2019 [...] on file Sexual Orientation Not on file Last Filed Vital Signs Vital Sign Reading [...] of 2) 04/01/2024 02/05/2024 Depression Screening 12/01/2024 COVID-19 Vaccine ( - season) 2025 09/30/2024, 09/22/2024, 02/22/2023, Additional history exists Influenza Vaccine (#1) 2025 , 09/22/2024, 02/05/2024, Additional history exists DTaP,Tdap,and Td Vaccines (4 - Td or Tdap) 04/19/2029 04/19/2019, 05/21/2015, 09/14/2008 Cholesterol Screening (Lipid Panel) 11/05/2029 11/05/2024, 02/05/2024, 03/26/2023, Additional history exists HIV Screening Completed 11/20/2018 HIB Vaccines Aged Out No longer eligi [...] Documents on File Type Date Recorded Patient Siene Maker Expl anation Health Care Decision (hx) 05/30/2022 AD ACOSTA DIRECTIVE Health Care Decision (hx) 05/30/2022 AD ACOSTA DIRECTIVE Health Care Decision (hx) 05/30/2022 AD ACOSTA DIRECTIVE Health Care Decision (hx) 05/30/2022 AD ACOSTA DIRECTIVE Care Teams Wellness Assistant Relationship Specialty Start Date End Date Kennedy Campbell FNP [address] [place] [phone] [facility] - General 02/06/24
== END 2025-11-08 16:07 | disposition home or self-care (01) ==
LOC: HO.HSMS 14:28
PROVIDERS: PCP Physician Assistant; Visit Provider Nurse Practitioner Family
DX: G43.109 Migraine with aura, not intractable, without status migrainosus (principal); F11.20 Opioid dependence, uncomplicated; F41.9 Anxiety disorder, unspecified; F32.A Depression, unspecified; G47.00 Insomnia, unspecified; Z86.73 Personal history of transient ischemic attack (TIA), and cerebral infarction without residual deficits
CPT/HCPCS: 99214

== ENCOUNTER → 2025-11-08 14:27 | Outpatient (BNVA) | payer MEDICAID, SELFPAY | PROVIDERS: PCP Physician Assistant; Visit Provider Nurse Practitioner Family | DX: G43.109 Migraine with aura, not intractable, without status migrainosus (principal); G47.00 Insomnia, unspecified; F11.20 Opioid dependence, uncomplicated; F41.8 Other specified anxiety disorders; Z86.73 Personal history of transient ischemic attack (TIA), and cerebral infarction without residual deficits | CPT/HCPCS: 99212 ==

== ENCOUNTER 2025-11-21 15:01 | Outpatient (AMB) | payer MEDICAID, SELFPAY ==
[2025-11-21 15:08] VITALS: BP 80/52; PULSE 75; O2SAT 97; BMI 27.6
--- NOTE | 2025-11-21 15:08 | A.OFFVIS_ITS ---
Vital Signs 11/21/25 15:08 Height 4 ft 10 in Weight 132 lb 4.438 oz BMI 27.6 BP 80/52 L Blood Pressure Location Rt brachial Position Sitting Pulse 75 Pulse Source Pulse Oximeter Pulse Oximetry (%) 97 Oxygen Delivery Method Nasal Cannula Oxygen Flow Rate 2 Intake Visit Reasons: Nocturnal Hypoxemia Allergies shellfish derived (SHELLFISH DERIVED) Allergy (Severe, Verified 11/21/25 15:12) SWELLING bee pollen (BEE STINGS) Allergy (Mild, Verified 11/21/25 15:12) SWELLING IN THROAT Fish Flavor Allergy (Unknown, Uncoded 11/21/25 15:12) Unknown HPI Comments Details: Sandy is a pleasant 55 year old female, current 40 pack year smoker, with underlying COPD/asthma, Left MCA CVA in 2014- w/ residual speech deficit/mild dysphagia, h/o polysubstance abuse on methadone, arthritis, and depression. She was initially referred by Neurology after sleep study revealed nocturnal hypoxemia. She underwent a sleep study in 05/2025 due to ongoing sleep difficulties, which was negative for LAUREL however revealed nocturnal hypoxemia <88% for 12 consecutive minutes, necessitating further investigation and treatment, once 1L of supplemental oxygen was applied, hypoxemia resolved. At the last visit, an order was placed for nocturnal supplemental oxygen but due to the study being >90 days this was not processed. A 6MWT was performed on 11/07 demonstrating the need for 2L supplemental oxygen with ambulation, patient desaturated to 86% on room air. Since then she has been using consistently with ambulation as well as NOC and reports improvements in dyspnea. Unfortunately she continues with bronchitic symptoms despite Doxycycline. She continues with chest congestion, productive cough with yellow sputum and wheezing. She denies any recent fevers. Regarding her medications, it was noted that she should be on a combination of Breo and Incruse inhalers, but she only has Incruse. A prescription was p reviously sent to [facility], but it was not picked up. Trelegy was not covered by insurance. For tobacco use, she has reduced her smoking to 10 cigarettes per day and is using nicotine patches and gum to aid in cessation. She expresses that she is ready to quit. Pulmonology History - Current smoker, reduced to 10 cigarettes per day. - Chronic hypoxemia requiring continuous supplemental oxygen at 2 L/min. - Prescribed maintenance inhaler therapy with Breo and Incruse. - Reports persistent chest congestion with some coughing and wheezing. - History of a sleep study being outdated (>90 days) for a prior oxygen prescription request. - Previous visit noted significant wheezing, which was treated with prednisone. Results - Chest X-ray (four weeks ago): There are mildly coarse lung markings. 5 mm nodular density right mid third lung zone probably represents calcified granuloma. [facility] Medical History Anxiety and depression Chronic low back pain with right-sided sciatica Hx of diverticulitis of colon Osteoarthritis Moderate persistent asthma Renal mass Urinary retention QT prolongation PTSD (post-traumatic stress disorder) Polysubstance (excluding opioids) dependence HLD (hyperlipidemia) Hx of ischemic left MCA stroke Surgical History History of hip replacement H/O: hysterectomy H/O tubal ligation H/O knee surgery Family History Father Cancer Mother Heart failure Social History (Updated 11/21/25 @ 15:12 by Lita Neff [facility]) Household Members: Spouse Housing: House Alcohol intake: current Patient Tobacco Use Status: Current everyday Tobacco user Cigarette Packs Per Day: 0.5 Cigarettes Per Day: 10 Review of Systems Narrative Const Denies chills, Denies excessive sweating and Denies night sweats Eyes Denies dry eyes, Denies irritation and Denies itchy eyes ENT Reports Normal hearing present, Denies nasal congestion, Denies nasal discharge, Denies post nasal drip and Denies sore throat Card Denies chest pain, Denies chest pain at rest, Denies chest pain with activity, Denies claudication, Denies leg edema, Reports dyspnea on exertion, Denies orthopnea and Denies paroxysmal nocturnal dyspnea Resp Reports change in phlegm color, Reports chest congestion, Reports cough, Denies hemoptysis, Denies pain on inspiration, Denies pain with cough, Reports dyspnea on exertion, Denies stridor and Reports wheezing Neuro Reports Normal hearing present Endo Denies excessive sweating Saman/Lymph Denies lymphadenopathy Aller/Immun Denies itchy eyes, Denies seasonal rhinorrhea and Reports wheezing Physical Exam Exam Exam: Vital Signs: Last Vital Signs Pulse 75 11/21/25 15:08 BP 80/52 L 11/21/25 15:08 Pulse Ox 97 11/21/25 15:08 Oxygen Delivery Method Nasal Cannula 11/21/25 15:08 Oxygen Flow Rate 2 11/21/25 15:08 BMI result Body Mass Index 27.6 Const General: cooperative, comfortable, no acute distress and alert Orientation/consciousness: patient oriented x3 Limitations: ambulation with walker HEENT Head: Yes normal to inspection, Yes normocephalic and Yes atraumatic Ears: hearing grossly normal bilaterally and external ears normal Eyes General: appearance normal, both eyes and all related structures Eyelids: Yes eyelids normal Sclerae: sclerae normal EOM: EOMs intact bilaterally Neck Neck: Yes normal visual inspection and Yes no lymphadenopathy Lymphatic: no lymphadenopathy noted Chest Chest palpation & inspection: normal inspection of the chest Resp Effort & Inspection: normal respiratory effort, able to speak in complete sentences, no audible wheezes, no cough, no stridor, not tachypneic, no tripod positioning and no use of accessory muscles Auscultation: no crackles, no rhonchi, no wheezes and diminished lung sounds Cardio Jugular venous distension: no JVD Rate: regular rate Rhythm: regular rhythm Skin Other: warm, dry General skin exam: no rashes or lesions noted Neuro General: patient oriented x3 Cranial nerves: Yes Normal hearing present Cognition (Neuro): normal cognition Extrem General: Yes normal to inspection, Yes capillary refill normal, Yes no clubbing, cyanosis or edema and Yes no pedal edema Psych Other: some word finding difficulties Appearance: grossly normal Affect: normal affect Attitude: cooperative Thought process: Normal thought process present Thought content: Normal thought content present Insight: Good insight present (Psych) Judgement: Good judgement present (Psych) Assessment & Plan Assessment & Plan (1) Asthma: Code(s): J45.909 - Unspecified asthma, uncomplicated Category: Medical (2) COPD (chronic obstructive pulmonary disease): Code(s): J44.9 - Chronic obstructive pulmonary disease, unspecified Category: Medical (3) Nocturnal hypoxemia: Code(s): G47.34 - Idiopathic sleep related nonobstructive alveolar hypoventilation Category: Medical (4) Nicotine dependence, cigarettes, uncomplicated: Code(s): F17.210 - Nicotine dependence, cigarettes, uncomplicated Category: Medical Plan The patient reports persistent chest congestion and is producing yellow sputum, and physical exam reveals diminished breath sounds in the left lower base. A 10- day course of a new antibiotic will be prescribed, with instructions to take it with food. The patient was advised to call for a chest x-ray if symptoms do not improve or to go to the emergency room if they worsen, especially given limited holiday hours. The patient was found to be missing one of her prescribed inhalers. The prescription for the Breo inhaler will be resent to [facility]. She was instructed to use both the Breo and Incruse inhalers once daily, and to rinse her mouth after using Breo. Encouraged patient to continue to use supplemental oxygen at 2 L/min with exertion and 1L/min at NOC. To ensure this dosage is adequate, an overnight oximetry test will be ordered, which will be mailed to her. She was advised to continue 2 L/min and to call if her home pulse oximeter reads below 90%. To manage discomfort from the nasal cannula, suggestions included using a ujp-fenjvtfzw-cgkfv lubricant such as a saline lubricant like Harper, or placing a Band-Aid on the tubing where it rests on the ears. Today patient with hypotension and has been instructed to check her blood pressure twice a day, keep a log, and call her primary care doctor if it remains persistently low. She was also advised to go to the emergency room if she experiences significant dizziness or weakness. The patient has reduced her cigarette use to 10 per day and is utilizing nicotine patches and gum. She was encouraged to continue her cessation efforts, and the benefits of quitting were reinforced. The patient is scheduled for a CT scan and pulmonary function tests in January, with a follow-up appointment planned for early January. All questions were answered and patient is in agreement of plan. Patient Instructions - Check your blood pressure twice a day, write the numbers down, and call your primary care doctor if it is always low. - Go to the emergency room if you feel very dizzy or weak. 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 - Take the new antibiotic for 10 days, and be sure to take it with food. - Use both of your inhalers (the blue Breo and the green Incruse) every single day. - Always rinse your mouth out with water after using the Breo inhaler. - If your chest congestion and cough do not get better, call our office as you may need a chest X-ray. - We will send you a watch-like device to wear overnight to check your oxygen levels while you sleep. - Continue using your oxygen at 2 liters with exertion and 1L NOC. - Call us if your home oxygen meter ever reads below 90. - For soreness from the oxygen tubing, you can use a non-petroleum lubricant in your nose, or place a Band-Aid over your ears. - Continue your efforts to quit smoking with the patches and gum. - Plan to follow up in our office in early January, after you have completed your CT scan and breathing test in January. Patient was informed and verbally consented to the use of an ambient scribe for clinic note documentation during this visit. Orders: Orders Overnight Pulse Oximetry Today G47.34 - Idiopathic sleep related nonobstructive alveolar hypoventilation Medications: New cefpodoxime must administer with a meal/food 200 mg PO BID 20 tabs 0RF Refilled fluticasone furoate-vilanterol 200-25 mcg/dose (Breo Ellipta) 1 inh inhalation DAILY 60 ea 3RF Discontinued zzxddobccnl-wmiafitza-uegwjkbu 200-62.5-25 mcg (Trelegy Ellipta) Discontinued Reason: Insurance Denied 1 inh inhalation DAILY 60 ea 3RF Coding Level of Care Code Est Pt Level 4 (21345) Add On Problem Visit Only Diagnoses Asthma J45.909 COPD (chronic obstructive pulmonary disease) J44.9 Nocturnal hypoxemia G47.34 Nicotine dependence, cigarettes, uncomplicated F17.210
--- OUTSIDE RECORDS SUMMARY | 2025-11-21 18:18 | XMS_ITS | Data Portability ---
Author Organization [place] [facility] Address [address] [place] [phone] Assessment Encounter Date Assessment Date Assessment LastModified [...] was discouraged as she is in rehab ([facility]). Also sent prescriptions for nicotine addiction as [...] venous, extremity, limited - Pt is in [facility] - having right leg pain for the past 2 months from groin to lower leg. 2020 021 [facility] hospital Corporate Office ([facility]), [address] [place] [address], [place], [address], 08:38:24 Medication Orders nicotine 21 mg/24 hr daily transdermal patch 2020 021 [place] [id number], [address], [place], [place], [id number], 15:31:56 nicotine (polacrilex ) 2 mg gum 2020 021 [place] [phone], [address], [address], [place], [place], [id number], 16:00:12 lidocaine 5 % topical patch 2020 021 [place] [phone], [address], [address], [place], [place], [id number], 15:59:57 ibuprofen 400 mg tablet 2020 021 [place] [id number], [address], [address] , [place], [place], [id number], 15:37:25 Patient TargetsNo targets recorded. Patient Instructions Encounter Date Encounter Id Patient Instructions Last Modified By Organization Details Last Modified Time 07/30/2021 [id number] [facility] came to your home for [...] the ultrasound to be done at the [facility]. We also ordered lidocaine patches and [...] limit ed No observ ation record ed. [email or web address] [facility] Corporate Office ([facility] [employer]) [address] [facility], [place], [address], 08/01/2021 09:07:51 Result Notes None recorded. Procedures Surgical History Date Name Laterality Status Provider Name and Address Organization Details Recorded Time open reduction of fracture of tibia and fibula completed PATRICIA TERRELL NP [address], [place], [address], [place] [facility] 07/30/2021 15:23:49 Imaging Results None recorded. Procedure [...] Not Available Vitals Date Recorded Oxygen saturation Body temperature Heart rate Respiratory rate Systolic And Diastolic Provider Name and Address Organization Details Last Updated DateTime 1 95 % 95 [degF] 84 /min 16 /min 102/68 mm[Hg] Not Available [facility] 1 15:24:14 Social History None recorded. Functional Status None recorded. Mental Status None recorded. Family History Nothing Reported. Medical History Condition Response Coronary Artery Disease N Cancer N Stroke Y Depression Y COPD Y Asthma N Gynecological HistoryNo gynecological history recorded. Obstetrics History GPAL:G 0 P 0 0 0 0 Past Encounters Encounter ID Performer Location Encounter Start Date Encounter Closed Date Diagnosis/Indication Diagnosis SNOMED-CT Code Diagnosis ICD10 Code Diagnosis IMO Codes Diagnosis Note [id number] PATRICIA TERRELL NP [facility] [address] [place] [address] [place] [phone] 07/30/2021 15:16:34 07/31/2021 13:57:37 Pain in right lower limb [id number] M79.604 Seen by pauline miller cessation advisor [id number] Z76.89 Health Concerns Section Related Observation LastModified by Organization Detai ls LastModified Time None Recorded Concern Status LastModified by Organization Details LastModified Time None Recorded Advance Directives Directive None Recorded Payers Insurance Date Sequence Insurance Name Policy Number Policy Medina Covered Member ID Medina Member ID Guarantor Name 07/30/2021 1 [facility] (MEDICAID HMO) [id number] Sandy Chlastawa [id number] Sandy Chlastawa 07/30/2021 1 [facility] (MEDICAID HMO) [id number] Sandy Chlastawa [id number] Sandy Chlastawa 07/30/2021 1 [facility] (MEDICAID HMO) [id number] Sandy Chlastawa [id number] Sandy Chlastawa 07/30/2021 2 [facility] (MEDICAID HMO) [id number] Sandy Chlastawa [id number] Sandy Chlastawa 07/30/2021 1 [facility] (MEDICAID HMO) [id number] Sandy Chlastawa [id number] Sandy Chlastawa 07/30/2021 1 [facility] (MEDICAID HMO) [id number] Sandy Chlastawa [id number] Sandy Chlastawa 07/30/2021 1 [facility]MEDICAID HMO) [id number] Sandy Chlastawa [id number] Sandy Chlastawa 07/30/2021 1 *SELF PAY* Sandy Chlastawa [id number] Sandy Chlastawa 07/31/2021 2 [facility] (MEDICAID HMO) [id number] Sandy Chlastawa [id number] Sandy Chlastawa 07/30/2021 1 [facility] (MEDICAID HMO) [id number] Sandy Chlastawa [id number] Sandy Chlastawa Notes Date Note Type Note Provider Name and Address Organization Details Recorded Time 07/30/2021 text/html 50 year-old female with history of CVA, alcohol addiction, cocaine addiction in recovery, depression, who calls to evaluate her while in treatment at the [facility] for her right leg pain.PT reports [...] rods in both of her legs. PATRICIA TERRELL, [place] [address], [place], [address], [place] [facility] 07/30/2021 16:21:15 OBGyn Episode No OBEpisode recorded.
--- OUTSIDE RECORDS SUMMARY | 2025-11-21 18:18 | XMS_ITS | Clinical Summary ---
Author Organization 175 [facility] Address [address] [place] [address] Phone Care Team Providers Care Rental Car Deliverer Name Role Phone Kennedy Campbell BOND CLERK Primary Care Provider Allergies Active Allergy Reactions [...] Immunization Administration Dates Next Due Hepatitis B (Hqpunui-Q-Ttxeg , Recombivax HB-Adult) 19yo and older 09/20/2019 [...] bilateral tib-fib fractures w/ rods MYOMECTOMY PROCEDURE: MI LAPS MYOMECTOMY EXC 1-4 MYOMAS 250 GM/< Medical History Medical History Date Comments Anxiety 10/04/2019 DX:Anxiety Asthma 10/04/2019 DX:Asthma Chronic low back pain with r ight-sided sciatica 10/04/2019 DX:Chronic low back pain wit h right-sided sciatica Chronic pancreatitis ([facility]/ [facility] V24, [facility] V28) 03/15/2013 DX:Chronic pancreatitis (HCC ) Degenerative [...] Brain [facility] 12/22/18 Major depression, recurrent, chronic ([facility] V24) 10/04/2019 DX:Major depression, recurre nt, chronic ([facility]) Migraine headache 10/04/2019 DX:Migraine he adache Polysubstance dependence, no n-opioid, in remission ([facility] V24, [facility] V28) 10/04/2019 DX:Polysubstance dependence, non-opioid, in remission ([facility]) Post traumatic stress disorder (PTSD) 02/19/2013 DX:Post traumatic stress disorder (PTSD) Prolonged QT interval 10/04/2019 DX:Prolong ed QT interval Suicidal risk 10/04/2019 DX:Suicidal risk ; COMMENT: Hospitalized [facility] 07/14/19 for medication overdose Tobacco dependence 10/04/2019 [...] Documents on File Type Date Recorded Patient Aegis Operations Specialist Expl anation Health Care Decision (hx) 05/30/2022 AD ACOSTA DIRECTIVE Health Care Decision (hx) 05/30/2022 AD ACOSTA DIRECTIVE Health Care Decision (hx) 05/30/2022 AD ACOSTA DIRECTIVE Health Care Decision (hx) 05/30/2022 AD ACOSTA DIRECTIVE Care Teams Rental Car Deliverer Relationship Specialty Start Date End Date Kennedy Campbell FNP [address] [place] [phone] [facility] - General 02/06/24
== END 2025-11-21 20:38 | disposition home or self-care (01) ==
LOC: HO.HPS 15:02
PROVIDERS: PCP Physician Assistant; Visit Provider Nurse Practitioner Family
DX: J45.909 Unspecified asthma, uncomplicated (principal); J44.9 Chronic obstructive pulmonary disease, unspecified; G47.34 Idiopathic sleep related nonobstructive alveolar hypoventilation; F17.210 Nicotine dependence, cigarettes, uncomplicated
CPT/HCPCS: 99214

== ENCOUNTER → 2025-11-21 15:01 | Outpatient (BNVA) | payer MEDICAID, SELFPAY | PROVIDERS: PCP Physician Assistant; Visit Provider Nurse Practitioner Family | DX: J45.909 Unspecified asthma, uncomplicated (principal); J44.89 Other specified chronic obstructive pulmonary disease; G47.34 Idiopathic sleep related nonobstructive alveolar hypoventilation; F17.210 Nicotine dependence, cigarettes, uncomplicated; I10 Essential (primary) hypertension | CPT/HCPCS: 99212 ==